=== PATIENT | male | born 1950 | race Caucasian/White ===

== ENCOUNTER → 2017-07-14 | Day surgery (SDC) | payer OTHER ==
[~2017-07-14] VITALS: Ht 177.8 cm; Wt 96.0 kg
[~2017-07-14] MED LIST: ASPEC81 PO; ESCI10TA17 PO; FENTANYL CITRATE INJ 50 MCG/1 ML 2 ML VIAL ONE; HEPARIN SOD (PORCINE) 1000 UNIT/ML 10 ML VIAL ONE; LISI-729 PO; LPT40 PO; LSN5 PO; METO25TA56 PO; METO50TA16 PO; MIDAZOLAM HCL 1 MG/ML 2ML VIAL ONE; NITROGLYCERIN/D5W 100MCG/ML 20ML SYR ONE; NTRSLP4 SL; NiCARDipine HCL INJ 2.5 MG/ML 10 ML AMP ONE; PLV75 PO; ROSU5TAB PO; SILD1TAB11 PO
[2017-07-14 07:10] VITALS: BP 129/64; PULSE 60; TEMP 36.7; O2SAT 97; Ht 177.8 cm; Wt 96.0 kg
--- NOTE | 2017-07-14 08:06 | Procedure Note ---
Pre-Mod Sedation Assessment General Date of Moderate Sedation: Jul 14, 2017. Vital Signs: Vital Signs Past 12 Hours Date Time Temp Pulse Resp B/P (MAP) Pulse Ox O2 Delivery O2 Flow Rate FiO2 07/14/17 07:10 36.7 60 18 129/64 97 Room Air Review Cardiovascular: regular rate, rhythm, no edema Abdomen: normal bowel sounds, non tender Lungs: chest non-tender, lungs clear Airway Class: III Pre-Sedation Airway Assessment Oral Cavity: Dentures, WNL Short Thick Neck: No Hx of Sleep Apnea: No Smoking Status: Former Smoker Mallampati Classification: Class III ASA Classification: Class III Procedure Planning Contraindications-for Mod Sed: None Yes Notes The planned sedation has been discussed with the patient and consent obtained. I have identified the patient, determined the appropriateness of sedation and have assessed the patient immediately prior to the procedure. All medicine(s) and interventions are by my order.
--- NOTE | 2017-07-14 08:06 | History & Physical Bridge Note ---
H&P Re-Evaluation Bridge Note: I have examined the patient, reviewed the History & Physical and in the interval since the performance of the History & Physical I have noted the following changes of clinical significance: No changes noted
--- NOTE | 2017-07-14 08:48 | Procedure Note ---
Post-Mod Sedation Assessment General Date of Moderate Sedation Jul 14, 2017. Vital Signs: Vital Signs Past 12 Hours Date Time Temp Pulse Resp B/P (MAP) Pulse Ox O2 Delivery O2 Flow Rate FiO2 07/14/17 07:10 36.7 60 18 129/64 97 Room Air Review - Discharge Criteria Vital Signs Stable: Yes Alert/Oriented/Conversant: Yes Returned to Baseline Mental St: Yes Nausea Absent/Minimal: Yes Pain/Discomfort/Absent/Minimal: Yes Active Bleeding?: No Pt Received D/C Instructions: N/A Prescriptions Given: None Specific Proced. D/C Criteria Distal Pulses Present (Cardiac: Yes Groin site assessed-Card Cath: N/A Voided Prior To Discharge: N/A Discharged Patients Adult Escort/Transportation: Yes
--- NOTE | 2017-07-14 08:58 | Cardiac Catheterization ---
Procedure Note Procedure Date Jul 14, 2017. Pre-Procedure Diagnosis Angina AUC Score 7 Post-Procedure Diagnosis Mild CAD, Normal LV Systolic Function, Normal Intracardiac Pressures Procedure(s) Performed Coronary Angiography, Left Heart Cath Ob/Gyn Doctor Anuel Nutrition Representative(s) Joan Estimated Blood Loss 10 Medication(s) Fentanyl, Heparin, Nitroglycerin, Versed, Lidocaine 1% Summary of Findings Indication: Accelerating angina/History of CAD post prior Inferior STEMI with proximal RCA stent Access: 6Fr slender Right Radial Artery Catheters: [place], pigtail Findings: LM - Luminal irregularities LAD - Mild disease, 20% mid segment, moderate sized vessel wraps around apex. LAD gives off 2 small diagonal with mild disease. Circumflex - Mild disease, 20% mid segment, moderate sized OM2 with luminal irregularities RCA - Dominant, minimal in-stent restenosis in proximal stent, distal luminal irregularities. LVEDP - 16 Arterial Closure: TR Band Summary: 1. Mild non-obstructive coronary artery disease - Patent proximal RCA stent with minimal instent restenosis. 2. Normal intracardiac filling pressure. Preserved LV function. Recommendations: Will discontinue plavix as now more than 1 year out from stent Reduce metoprolol from 50 mg to 25 mg bid Evaluate for non-cardiac causes of shortness of breath Follow-up with Dr. Agee in 1 month. Hemodynamics Rest Ao: 102/52/73 Final Ao: 96/50/69 LV: 95/16 Recommendations Medical therapy and/or Counseling Specimens None Radiation Exposure (mGy) 1072 Contrast (mls) 80 Fluids (cc crystalloids) 70 Drains None Anesthesia Moderate Procedural Complication(s) None Disposition Consultant Intern Holding/Recovery ACC Data Cardiac Status Clinical evaluation leading to the procedure CAD Presntation: Unstable angina Anginal Classification: CCS III Heart Failure: No, NYHA Class: CCS I Cardiogenic Shock w/in 24Hrs: No Cardiac Arrest w/in 24Hrs: No Imaging studies past 6 months: No Stress studies past 6 months: No Coronary Anatomy Dominant: Right Closure Device Percutaneous Entry Location: Radial Closure Device: Radial Band Recommendations: Medical therapy and/or Counseling Intraprocedure Events Significant Dissection: No Perforation: No
--- NOTE | 2017-07-14 09:02 | Discharge Instructions ---
Discharge Instructions Procedure Procedure Date: Jul 14, 2017. Reason for Visit: CadDr Agee To Do Cath. Discharge Discharge Date: Jul 14, 2017. Discharge Diagnosis: Non-obstructive coronary artery disease Last Recorded Wt (Kilograms): 96 Anesthesia Post Anesthesia Instructions: If you have had General Anesthesia or IV Sedation: * Do not drive today. * Resume driving when surgeon permits. * Do not make important decisions or sign legal documents today. * Call surgeon for: 1. Temperature elevations greater than 101 degrees F. 2. Uncontrollable pain. 3. Excessive bleeding. 4. Persistent nausea and vomiting. 5. Medication intolerance (nausea, vomiting or rash). * For nausea and vomiting use only clear liquids such as: tea, soda, bouillon until nausea subsides, then gradually increase diet as tolerated. * If you have any concerns or questions, call your surgeon's office. If physician is unavailable and it is an emergency, call 911 or go to the nearest emergency room. Instructions Activity Recommendations: limitations as noted below Recommended Home Diet: resume previous diet Allergies: Coded Allergies: No Known Allergies (Unverified , 07/09/16) Follow Up Additional Instructions: ACTIVITY RECOMMENDATIONS: It is common to feel weak and fatigue for a few days. * Do not drive or operate any motorized equipment for the next 2 days. * Limit stair usage (2 or 3 trips a day only) for the next 2 days. * Do not lift anything heavier than 10 pounds for the next three days. * Do not engage in vigorous exercise or any sports for the next five days. * You may shower the day after your procedure, but do not immerse the area for three days. Cleanse the site gently with soap and water. SPECIAL CARE INSTRUCTIONS: * You may replace the pressure dressing or band-aid the morning after the procedure. * After your procedure, it is normal to have a small bruise or small lump at the site. Examine your site daily for any change in the bruise or lump, redness, swelling, drainage or numbness. Notify your doctor if any change. BLEEDING: * If there is a small amount of bleeding at the site, lie down and apply firm pressure with a clean cloth for ten minutes. When the bleeding stops, lie quietly keeping the procedure limb straight for six hours. Notify your doctor as soon as possible. * If the bleeding does not stop after ten minutes or if there is a large amount of bleeding or spurting, call 911 immediately. Continue to lie down and hold firm pressure until help arrives. SKIN IRRITATION: * You may experience some redness and/or swelling in the area where radiation was administered. If any skin irritation occurs, please contact your family physician. FOLLOW UP VISIT: Keep any scheduled doctor appointments. Follow-up with: [address] Anuel Hinojosa Recommendations: Call your doctor if: * Temperature above 101 degrees * Pain not relieved by pain medicine ordered * There is increased drainage or redness from any incision * You have any unanswered questions or concerns. Your Doctors Instructions noted above were prepared by provider Lang Agee. Patient Signature Section: Patient Instructions Signature Page Rom Robertson Patient (or Guardian) Signature/Date: I have read and understand the instructions given to me by my caregivers. Caregiver/RN/Doctor Signature/Date: The above-named patient and/or guardian has received patient instructions on this date. + Original Patient Signature Page (only) stays with chart. Please make copy for patient.
[2017-07-14 11:00] VITALS: BP 98/52; PULSE 48; O2SAT 96
== END | disposition home or self-care (01) ==
LOC: C.CATH 06:56
PROVIDERS: ATTEND Internal Medicine Interventional Cardiology
DX: I25.10 Atherosclerotic heart disease of native coronary artery without angina pectoris (principal); Z95.9 Presence of cardiac and vascular implant and graft, unspecified; I25.2 Old myocardial infarction; I49.3 Ventricular premature depolarization; I44.2 Atrioventricular block, complete; F17.200 Nicotine dependence, unspecified, uncomplicated; Z90.89 Acquired absence of other organs; Z79.82 Long term (current) use of aspirin; Z79.899 Other long term (current) drug therapy

== ENCOUNTER 2024-09-19 20:54 | Inpatient (IN) ==
[2024-09-19 21:36] LABS: Basophils # (auto) 0.04 K/uL (0.00-0.20); Basophils % (auto) 0.4 %; Eosinophils # (auto) 0.23 K/uL (0.00-0.50); Hematocrit (blood only) 41.2 % (42.0-52.0); Hemoglobin 13.9 g/dl (14.0-18.0); Immature Granulocytes # (auto) 0.09 K/uL (0.01-0.20); Immature Granulocytes % (auto) 0.8 %; Lymphocytes # (auto) 2.53 K/uL (1.20-3.40); Lymphocytes % (auto) 22.4 %; Mean Corpuscular Hemoglobin 31.5 pg (25.0-34.0); Mean Corpuscular Hgb Conc 33.7 g/dL (32.0-36.0); Mean Corpuscular Volume 93.4 fL (80.0-100.0); Monocytes # (auto) 0.91 K/uL (0.11-0.59); Neutrophils # (auto) 7.51 K/uL (1.40-6.50); Neutrophils % (auto) 66.4 %; Platelet Count 252 K/uL (130-400); RDW Coefficient of Variation 13.4 % (11.5-14.5); RDW Standard Deviation 46.1 fL (36.4-46.3); Red Blood Count 4.41 M/uL (4.70-6.10); White Blood Count 11.31 K/ul (4.8-10.8)
[2024-09-19 21:54] LABS: Albumin Globulin Ratio 1.4 (0.9-2); Albumin Level 4.1 gm/dl (3.4-5.0); BUN Creatinine Ratio 21.5 (10-20); Bilirubin,Total 0.3 mg/dl (0.2-1.0); Calcium 9.5 mg/dl (8.6-10.3); Creatinine Clr Calc Pharmacy 84.8 ml/min; Potassium 3.8 mmol/L (3.5-5.1); Total Protein 7.1 gm/dl (6.0-8.3)
[2024-09-19 21:56] LABS: Partial Thromboplastin Time 27 Seconds (21-31); Prothrombin Time 10.6 Seconds (9.0-12.0)
[2024-09-19 22:01] LABS: Troponin I High Sensitivity 8.6 pg/ml (0-20)
[2024-09-19] MEDS: OPTIRAY 320 125ml IV ONE (22:09)
[2024-09-19] MEDS: SODIUM CHLORIDE 0.9% 500 ML IV ONE (22:15)
--- NOTE | 2024-09-19 22:55 | Emergency Department Note ---
Impression & Plan Numbness and tingling of right face ED Provider Note NAME: NEGAR BUSH AGE: 74 SEX: Male INFORMANT: Patient and family ED PROVIDER(S): Negar Bragg MD CHIEF COMPLAINT: TIA symptoms PLAN: Disposition: Admitted Outpatient prescription management: none Referral: None MEDICAL DECISION MAKING: Patient presented because of complaints of right facial numbness and weakness. Historically also noted abnormalities with taste and smell. On examination he had sparing of his forehead although with some complaints of difficulty closing his eye. He did clear have weakness as well as numbness of the right lower face as well as the right side of his tongue. Clinically this could be a developing Peng's palsy but with the forehead sparing at this time a stroke workup was pursued. Patient does have a significant family history of stroke. No significant findings were noted on CT or CT angiography. Patient did have some canal stenosis at C3-C4 but has no neck pain. Patient was treated with aspirin. This may take more time to delineate between a supranuclear event/lesion versus a slowly developing Peng's. A Lyme test was done and negative. Chemistry panel was unremarkable. CBC had a borderline leukocytosis. Patient had a normal ECG. Cardiac monitoring revealed no evidence of dysrhythmia. [facility] Patient was evaluated in the ER and admitted for further management Care/management discussed with: Case management Level of care consideration(s): After review of the information above and other included data, I feel the patient requires escalation of care to admission and further neurologic evaluation. Triage Nursing notes: reviewed and agree them. Vital Signs: reviewed and remarkable for no significant abnormalities Additional History obtained from: Family. notes no confusion. Helped with time of onset of symptoms Chronic Medical/Social Conditions affecting care: CAD Prior/ Outside/ External records reviewed: none Differential Diagnosis: CVA, TIA, Peng's palsy,Infection, dehydration, metabolic abnormality, hypo/hyperglycemia, electrolyte disturbance, anemia, hypoxia, cardiac sources, intracerebral event, toxicologic, neurologic, as well as other pathologies. Diagnostics, independently interpreted by me: ECG: [none] Cardiac Monitoring: [none] Medical decision rules: [none] Imaging studies: [] HPI: 74 year old Male arrives for evaluation of TIA symptoms right facial numbness. This started yesterday and is progressing. The patient also notes the following associated symptoms, lack of taste for a month, sensitivity to smells, difficulty closing his right eye today. The patient has taken no medication relieving factors. Current pain is rated as 0/10. Pt denies LOC, headache, fevers, chills, diaphoresis, visual changes, neck pain, chest pain, breathing difficulties, nausea, vomiting, abdominal pain, back pain, melena, hematochezia, urinary symptoms, extremity numbness,other weakness, lymphadenopathy, rash, or other complaints. PAST MEDICAL HISTORY: See Below, high cholesterol, hypertension, CAD PAST SURGICAL HISTORY: See Below, SOCIAL HISTORY: See Below, quit smoking HOME MEDICATIONS: See Below ALLERGIES: See Below VITALS: See Below PHYSICAL EXAMINATION: GENERAL: Awake, alert, well-appearing, in no distress HENT: Normocephalic, atraumatic. Oropharynx unremarkable. EYES: Normal conjunctiva. Sclera non-icteric. PERRL, EOMI. NECK: Inspection normal. Non-tender. Supple. No nuchal rigidity. FROM. No masses. RESPIRATORY: Clear to auscultation. No wheezes. No rales. Normal respiratory effort. CARDIAC: Normal rate. Normal rhythm. No murmurs. No rubs. Extremities warm and well perfused. Pulses equal. No JVD. GI: Soft, non-distended. No tenderness to palpation. No rebound or guarding. No masses. RECTAL: Deferred. MUSCULOSKELETAL: Atraumatic. Chest examination reveals no tenderness. The back is symmetrical on inspection without obvious abnormality. There is no CVA tenderness to palpation. No joint edema. LOWER EXTREMITIES: Calves are equal size bilaterally and non-tender. No edema. No discoloration. NEURO: Normal sensorium. No sensory or motor deficits noted in the extremities. No drift. Normal rapid altering movements. Normal [id number]. There is right lower facial weakness noted. Patient notes decreased sensation of the right lower face. Subjectively there is some weakness of closing the right eye however there is forehead sparing on the right side. Patient notes decrease sensation to the right inner cheek as well as the right side of his tongue. SKIN: No rash or jaundice noted. PROCEDURES: none CRITICAL CARE: none OBSERVATION NOTE: none Past Med/Surg History Problem List (Updated 09/19/24 @ 22:55 by Negar Bragg MD) Numbness and tingling of right face (Acute) Coronary artery disease Tobacco abuse (Chronic) Surgical History (Updated 05/08/20 @ 11:11 by ROSAURA Berger) History of tonsillectomy Status post coronary angiogram Social History (Updated 05/08/20 @ 11:12 by ROSAURA Berger) Smoking Status: Never smoker Preferred Language: Monegasque marital status: current occupational status: unemployed Feels Safe at Home: Yes Allergies Allergies Allergy/AdvReac Type Severity Reaction Status Date / Time No Known Allergies Allergy Unverified 12/31/23 13:19 Home Meds Previous Rx's Medication Instructions Recorded aspirin 81 mg tablet,delayed 81 mg PO DAILY #90 tabs 05/23/19 release (Adult Low Dose Aspirin) nitroglycerin 0.4 mg sublingual 0.4 mg sublingual Q5M PRN chest 01/20/22 tablet pain #25 tabs rosuvastatin 40 mg tablet 40 mg PO DAILY #90 tabs 11/10/23 lisinopril 10 mg tablet 10 mg PO DAILY #90 tabs 12/31/23 lisinopril 5 mg tablet 5 mg PO DAILY #90 tabs 06/29/24 Results & Data (ED) Vital Signs Vital Signs - 24 hr 09/19/24 20:57 09/19/24 21:20 09/19/24 21:21 Temperature 36.8 C Temperature Source Temporal Artery Scan Pulse Rate 67 64 Pulse Rate [Apical] 64 Pulse Rate from SpO2 Sensor Pulse Rhythm [Apical] Regular Pulse Strength [Apical] Normal Respiratory Rate 20 16 Respiratory Effort / Characteristics Non-Labored Spontaneous Non-Labored Respiratory Depth Normal Normal Blood Pressure 148/70 H Blood Pressure [Right Arm] 128/63 Blood Pressure Mean 96 Blood Pressure Mean [Right Arm] 84 Pulse Oximetry 95 96 Oxygen Delivery Method Room Air Room Air Sepsis Recent Fever Within 48 Hours No Sepsis New/Unexplained Change in Mental Status No Sepsis Action Taken by Nursing No Action Required 09/19/24 21:30 09/19/24 22:30 09/19/24 23:00 Temperature Temperature Source Pulse Rate 61 62 Pulse Rate [Apical] Pulse Rate from SpO2 Sensor 63 Pulse Rhythm [Apical] Pulse Strength [Apical] Respiratory Rate 19 16 Respiratory Effort / Characteristics Non-Labored Respiratory Depth Normal Blood Pressure 123/67 128/82 Blood Pressure [Right Arm] Blood Pressure Mean 85 96 Blood Pressure Mean [Right Arm] Pulse Oximetry 96 96 Oxygen Delivery Method Sepsis Recent Fever Within 48 Hours Sepsis New/Unexplained Change in Mental Status Sepsis Action Taken by Nursing 09/19/24 23:00 09/19/24 23:00 09/19/24 23:00 Temperature Temperature Source Pulse Rate Pulse Rate [Apical] Pulse Rate from SpO2 Sensor Pulse Rhythm [Apical] Pulse Strength [Apical] Respiratory Rate Respiratory Effort / Characteristics Respiratory Depth Blood Pressure 146/88 H 146/88 H 146/88 H Blood Pressure [Right Arm] Blood Pressure Mean 106 106 106 Blood Pressure Mean [Right Arm] Pulse Oximetry Oxygen Delivery Method Sepsis Recent Fever Within 48 Hours Sepsis New/Unexplained Change in Mental Status Sepsis Action Taken by Nursing 09/19/24 23:00 09/19/24 23:42 09/19/24 23:51 Temperature Temperature Source Pulse Rate 68 61 60 Pulse Rate [Apical] Pulse Rate from SpO2 Sensor 68 Pulse Rhythm [Apical] Pulse Strength [Apical] Respiratory Rate 16 19 21 Respiratory Effort / Characteristics Respiratory Depth Blood Pressure Blood Pressure [Right Arm] Blood Pressure Mean Blood Pressure Mean [Right Arm] Pulse Oximetry 96 Oxygen Delivery Method Sepsis Recent Fever Within 48 Hours Sepsis New/Unexplained Change in Mental Status Sepsis Action Taken by Nursing 09/20/24 00:00 09/20/24 00:06 09/20/24 00:18 Temperature Temperature Source Pulse Rate 67 58 L Pulse Rate [Apical] Pulse Rate from SpO2 Sensor 67 59 L Pulse Rhythm [Apical] Pulse Strength [Apical] Respiratory Rate 18 19 Respiratory Effort / Characteristics Respiratory Depth Blood Pressure 131/71 Blood Pressure [Right Arm] Blood Pressure Mean 100 Blood Pressure Mean [Right Arm] Pulse Oximetry 95 95 Oxygen Delivery Method Sepsis Recent Fever Within 48 Hours Sepsis New/Unexplained Change in Mental Status Sepsis Action Taken by Nursing 09/20/24 00:32 09/20/24 00:32 09/20/24 00:32 Temperature Temperature Source Pulse Rate 58 L Pulse Rate [Apical] Pulse Rate from SpO2 Sensor Pulse Rhythm [Apical] Pulse Strength [Apical] Respiratory Rate 16 Respiratory Effort / Characteristics Respiratory Depth Blood Pressure 144/70 H 144/70 H 144/70 H Blood Pressure [Right Arm] Blood Pressure Mean 94 87 87 Blood Pressure Mean [Right Arm] Pulse Oximetry 96 Oxygen Delivery Method Room Air Sepsis Recent Fever Within 48 Hours Sepsis New/Unexplained Change in Mental Status Sepsis Action Taken by Nursing 09/20/24 00:33 09/20/24 00:48 09/20/24 01:00 Temperature Temperature Source Pulse Rate 59 L 58 L Pulse Rate [Apical] Pulse Rate from SpO2 Sensor 59 L 55 L Pulse Rhythm [Apical] Pulse Strength [Apical] Respiratory Rate 20 15 Respiratory Effort / Characteristics Non-Labored Respiratory Depth Normal Blood Pressure Blood Pressure [Right Arm] Blood Pressure Mean Blood Pressure Mean [Right Arm] Pulse Oximetry 97 95 Oxygen Delivery Method Sepsis Recent Fever Within 48 Hours Sepsis New/Unexplained Change in Mental Status Sepsis Action Taken by Nursing 09/20/24 01:04 09/20/24 01:12 09/20/24 01:19 Temperature Temperature Source Pulse Rate 69 57 L Pulse Rate [Apical] Pulse Rate from SpO2 Sensor 63 Pulse Rhythm [Apical] Pulse Strength [Apical] Respiratory Rate 20 Respiratory Effort / Characteristics Respiratory Depth Blood Pressure 152/77 H Blood Pressure [Right Arm] Blood Pressure Mean 99 Blood Pressure Mean [Right Arm] Pulse Oximetry 94 Oxygen Delivery Method Sepsis Recent Fever Within 48 Hours Sepsis New/Unexplained Change in Mental Status Sepsis Action Taken by Nursing 09/20/24 01:31 09/20/24 01:31 09/20/24 01:36 Temperature Temperature Source Pulse Rate 63 Pulse Rate [Apical] Pulse Rate from SpO2 Sensor 59 L Pulse Rhythm [Apical] Pulse Strength [Apical] Respiratory Rate 18 Respiratory Effort / Characteristics Respiratory Depth Blood Pressure 135/63 135/63 Blood Pressure [Right Arm] Blood Pressure Mean 87 87 Blood Pressure Mean [Right Arm] Pulse Oximetry 97 Oxygen Delivery Method Sepsis Recent Fever Within 48 Hours Sepsis New/Unexplained Change in Mental Status Sepsis Action Taken by Nursing Laboratory Data 09/19/24 21:10 09/19/24 21:10 Lab Results 09/19/24 Range/Units 21:10 WBC 11.31 H (4.8-10.8) K/ul RBC 4.41 L (4.70-6.10) M/uL Hgb 13.9 L (14.0-18.0) g/dl Hct 41.2 L (42.0-52.0) % MCV 93.4 (80.0-100.0) fL MCH 31.5 (25.0-34.0) pg MCHC 33.7 (32.0-36.0) g/dL RDW Std Deviation 46.1 (36.4-46.3) fL RDW Coeff of Shira 13.4 (11.5-14.5) % Plt Count 252 (130-400) K/uL MPV 11.0 (9.4-12.4) fL Immature Gran % (Auto) 0.8 % Neut % (Auto) 66.4 % Lymph % (Auto) 22.4 % [place] % (Auto) 8.0 % Eos % (Auto) 2.0 % Baso % (Auto) 0.4 % Neut # (Auto) 7.51 H (1.40-6.50) K/uL Lymph # (Auto) 2.53 (1.20-3.40) K/uL [place] # (Auto) 0.91 H (0.11-0.59) K/uL Eos # (Auto) 0.23 (0.00-0.50) K/uL Baso # (Auto) 0.04 (0.00-0.20) K/uL Immature Gran # (Auto) 0.09 (0.01-0.20) K/uL PT 10.6 (9.0-12.0) Seconds INR 1.0 (0.9-1.1) APTT 27 (21-31) Seconds PTT Ratio 1.0 Sodium 139 (136-145) mmol/L Potassium 3.8 (3.5-5.1) mmol/L Chloride 105 (98-107) mmol/L Carbon Dioxide 27 (21-32) mmol/L Anion Gap 7 (3-11) BUN 20 (6-23) mg/dl Creatinine 0.93 (0.6-1.4) mg/dl Est Cr Clr Drug Dosing 84.8 ml/min eGFR 86.16 BUN/Creatinine Ratio 21.5 H (10-20) Glucose 115 H (70-99(Fasting)) mg/dl Calcium 9.5 (8.6-10.3) mg/dl Magnesium 2.0 (1.7-2.4) mg/dl Total Bilirubin 0.3 (0.2-1.0) mg/dl AST 19 (13-39) U/L ALT 14 (7-52) U/L Alkaline Phosphatase 89 (34-104) U/L Troponin I High Sens 8.6 (0-20) pg/ml Total Protein 7.1 (6.0-8.3) gm/dl Albumin 4.1 (3.4-5.0) gm/dl Globulin 3.0 (2.5-4.0) gm/dl Albumin/Globulin Ratio 1.4 (0.9-2) Lyme Disease Screen Negative (Negative) Administered Medications Discontinued Medications Aspirin (Aspirin Chew 324 Mg) 324 mg PO NOW STA Stop: 09/20/24 00:24 Last Admin: 09/20/24 00:30 Dose: 324 mg Documented By: GLENN Sodium Chloride (Nss) 500 mls @ 999 mls/hr IV .Q31M ONE Stop: 09/19/24 22:18 Last Infusion: 09/19/24 22:50 Dose: Infused Documented By: Admin: 09/19/24 22:15 Dose: 999 mls/hr Documented By: ELIESER Ioversol (Optiray 320 125ml) 117 ml IV ONCE ONE Stop: 09/19/24 22:09 Last Admin: 09/19/24 22:09 Dose: 117 ml Documented By: ASHWIN Imaging Data Radiologist's Impression: Head CT 09/19/24 21:47 Exam(s): CT HEAD Without Contrast EXAM: CT Head Without Intravenous Contrast CLINICAL HISTORY: Reason for exam: Right facial numbness. TECHNIQUE: Axial computed tomography images of the head/brain without intravenous contrast. CTDI is 64 mGy and DLP is 1098 mGy-cm. Automated exposure control was utilized for the study. A dose lowering technique was utilized adhering to the principles of ALARA. COMPARISON: No relevant prior studies available. FINDINGS: Brain: No intracranial hemorrhage, mass-effect, or cerebral edema. Atrophy and chronic microvascular ischemic changes. Ventricles: Unremarkable. Bones/joints: Unremarkable. No fracture. Soft tissues: Unremarkable. Sinuses: No acute sinusitis. Mastoid air cells: Unremarkable as visualized. IMPRESSION: 1. No acute intracranial abnormality. 2. Atrophy and chronic microvascular ischemic changes. Electronically signed by: Harshil Laws MD 09/19/24 23:53 PM Head CTA 09/19/24 21:47 Exam(s): CTA HEAD With Contrast IV Amt: 117 ml optiray 320 EXAM: CT Angiography Head With Intravenous Contrast CLINICAL HISTORY: Reason for exam: Right facial numbness. TECHNIQUE: Axial computed tomographic angiography images of the head with intravenous contrast. CTDI is 64 mGy and DLP is 1098 mGy-cm. Automated exposure control was utilized for the study. A dose lowering technique was utilized adhering to the principles of ALARA. MIP reconstructed images were created and reviewed. CONTRAST: Patient received 117 ml optiray 320 of IV contrast COMPARISON: No relevant prior studies available. FINDINGS: Right internal carotid artery: Intracranial segment is patent with no significant stenosis. No aneurysm. Right anterior cerebral artery: No occlusion or significant stenosis. No aneurysm. Right middle cerebral artery: No occlusion or significant stenosis. No aneurysm. Right posterior cerebral artery: No occlusion or significant stenosis. No aneurysm. Right vertebral artery: Unremarkable as visualized. Left internal carotid artery: Intracranial segment is patent with no significant stenosis. No aneurysm. Left anterior cerebral artery: No occlusion or significant stenosis. No aneurysm. Left middle cerebral artery: No occlusion or significant stenosis. No aneurysm. Left posterior cerebral artery: No occlusion or significant stenosis. No aneurysm. Left vertebral artery: Unremarkable as visualized. Basilar artery: No occlusion or significant stenosis. No aneurysm. IMPRESSION: Normal head CTA. Electronically signed by: Harshil Laws MD 09/19/24 23:46 PM Neck CTA 09/19/24 21:47 Exam(s): CTA NECK With Contrast IV Amt: 117 ml optiray 320 EXAM: CT Angiography Neck With Intravenous Contrast CLINICAL HISTORY: Reason for exam: Right facial numbness. TECHNIQUE: Routine carotid CT angiography protocol was performed with intravenous contrast. NASCET criteria using the distal ICAs for comparison were used for evaluation of stenoses. CTDI is 64 mGy and DLP is 1098 mGy-cm. Automated exposure control was utilized for the study. A dose lowering technique was utilized adhering to the principles of ALARA. MIP reconstructed images were created and reviewed. CONTRAST: Patient received 117 ml optiray 320 of IV contrast COMPARISON: None. FINDINGS: VASCULATURE: Right common carotid artery: No occlusion or significant stenosis. No dissection. Right internal carotid artery: Extracranial segment is patent with no occlusion or significant stenosis. No dissection. Right vertebral artery: No occlusion or significant stenosis. No dissection. Left common carotid artery: No occlusion or significant stenosis. No dissection. Left internal carotid artery: Extracranial segment is patent with no occlusion or significant stenosis. No dissection. Left vertebral artery: No occlusion or significant stenosis. No dissection. NECK: Bones/joints: No acute fracture. Moderate to severe canal stenosis at C3-C4. Multilevel high-grade foraminal stenosis. Soft tissues: Unremarkable. Lung apices: Clear. CAROTID STENOSIS REFERENCE USING NASCET CRITERIA: % ICA stenosis = (1 - narrowest ICA diameter/diameter of distal cervical ICA) x 100. Mild - <50% stenosis. Moderate - 50-69% stenosis. Severe - 70-94% stenosis. Near occlusion - 95-99% stenosis. Occluded - 100% stenosis. IMPRESSION: 1. No flow-limiting stenosis. 2. Moderate to severe canal stenosis at C3-4. Electronically signed by: Harshil Laws MD 09/19/24 23:56 PM Chest X-Ray 09/19/24 22:58 Exam(s): XR CXR 1 VIEW EXAM: XR Chest, 1 View CLINICAL HISTORY: Reason for exam: stroke like symptoms. TECHNIQUE: Frontal view of the chest. COMPARISON: Chest radiograph on 07/09/2016 FINDINGS: Hardware: None. Lungs/pleura: Normal. No focal consolidation. No pleural effusion or pneumothorax. Heart/mediastinum: Normal. No cardiomegaly. Soft tissues: Unremarkable. Bones: No acute fracture. Upper abdomen: Normal. IMPRESSION: No acute disease identified. Electronically signed by: Paulie Mejia M.D. 09/20/24 01:31 AM Discharge Plan Visit Data Chief Complaint: TIA Symptoms Stated Complaint: NUMB RT FACE, VISION ED Provider: Negar Bragg Discharge Problem: Numbness and tingling of right face Forms Stand Alone Forms: [facility] [employer] Prescriptions Prescriptions: No Action aspirin [Adult Low Dose Aspirin] 81 mg tablet,delayed release (DR/EC) 81 mg PO DAILY Qty: 90 3RF nitroglycerin 0.4 mg tablet, sublingual 0.4 mg SL Q5M PRN (Reason: chest pain) Qty: 25 3RF Rx Instructions: until response; do not exceed 3 doses per episode rosuvastatin 40 mg tablet 40 mg PO DAILY Qty: 90 3RF lisinopril 5 mg tablet 5 mg PO DAILY Qty: 90 3RF lisinopril 10 mg tablet 10 mg PO DAILY Qty: 90 3RF Referrals Referrals: PCP,NO [Physician] -
--- NOTE | 2024-09-19 23:48 | CT Scan Report ---
Exam(s): CTA HEAD With Contrast IV Amt: 117 ml optiray 320 EXAM: CT Angiography Head With Intravenous Contrast CLINICAL HISTORY: Reason for exam: Right facial numbness. TECHNIQUE: Axial computed tomographic angiography images of the head with intravenous contrast. CTDI is 64 mGy and DLP is 1098 mGy-cm. Automated exposure control was utilized for the study. A dose lowering technique was utilized adhering to the principles of ALARA. MIP reconstructed images were created and reviewed. CONTRAST: Patient received 117 ml optiray 320 of IV contrast COMPARISON: No relevant prior studies available. FINDINGS: Right internal carotid artery: Intracranial segment is patent with no significant stenosis. No aneurysm. Right anterior cerebral artery: No occlusion or significant stenosis. No aneurysm. Right middle cerebral artery: No occlusion or significant stenosis. No aneurysm. Right posterior cerebral artery: No occlusion or significant stenosis. No aneurysm. Right vertebral artery: Unremarkable as visualized. Left internal carotid artery: Intracranial segment is patent with no significant stenosis. No aneurysm. Left anterior cerebral artery: No occlusion or significant stenosis. No aneurysm. Left middle cerebral artery: No occlusion or significant stenosis. No aneurysm. Left posterior cerebral artery: No occlusion or significant stenosis. No aneurysm. Left vertebral artery: Unremarkable as visualized. Basilar artery: No occlusion or significant stenosis. No aneurysm. IMPRESSION: Normal head CTA. Electronically signed by: Harshil Laws MD 09/19/24 23:46 PM
--- NOTE | 2024-09-19 23:54 | CT Scan Report ---
Exam(s): CT HEAD Without Contrast EXAM: CT Head Without Intravenous Contrast CLINICAL HISTORY: Reason for exam: Right facial numbness. TECHNIQUE: Axial computed tomography images of the head/brain without intravenous contrast. CTDI is 64 mGy and DLP is 1098 mGy-cm. Automated exposure control was utilized for the study. A dose lowering technique was utilized adhering to the principles of ALARA. COMPARISON: No relevant prior studies available. FINDINGS: Brain: No intracranial hemorrhage, mass-effect, or cerebral edema. Atrophy and chronic microvascular ischemic changes. Ventricles: Unremarkable. Bones/joints: Unremarkable. No fracture. Soft tissues: Unremarkable. Sinuses: No acute sinusitis. Mastoid air cells: Unremarkable as visualized. IMPRESSION: 1. No acute intracranial abnormality. 2. Atrophy and chronic microvascular ischemic changes. Electronically signed by: Harshil Laws MD 09/19/24 23:53 PM
--- NOTE | 2024-09-19 23:57 | CT Scan Report ---
Exam(s): CTA NECK With Contrast IV Amt: 117 ml optiray 320 EXAM: CT Angiography Neck With Intravenous Contrast CLINICAL HISTORY: Reason for exam: Right facial numbness. TECHNIQUE: Routine carotid CT angiography protocol was performed with intravenous contrast. NASCET criteria using the distal ICAs for comparison were used for evaluation of stenoses. CTDI is 64 mGy and DLP is 1098 mGy-cm. Automated exposure control was utilized for the study. A dose lowering technique was utilized adhering to the principles of ALARA. MIP reconstructed images were created and reviewed. CONTRAST: Patient received 117 ml optiray 320 of IV contrast COMPARISON: None. FINDINGS: VASCULATURE: Right common carotid artery: No occlusion or significant stenosis. No dissection. Right internal carotid artery: Extracranial segment is patent with no occlusion or significant stenosis. No dissection. Right vertebral artery: No occlusion or significant stenosis. No dissection. Left common carotid artery: No occlusion or significant stenosis. No dissection. Left internal carotid artery: Extracranial segment is patent with no occlusion or significant stenosis. No dissection. Left vertebral artery: No occlusion or significant stenosis. No dissection. NECK: Bones/joints: No acute fracture. Moderate to severe canal stenosis at C3-C4. Multilevel high-grade foraminal stenosis. Soft tissues: Unremarkable. Lung apices: Clear. CAROTID STENOSIS REFERENCE USING NASCET CRITERIA: % ICA stenosis = (1 - narrowest ICA diameter/diameter of distal cervical ICA) x 100. Mild - <50% stenosis. Moderate - 50-69% stenosis. Severe - 70-94% stenosis. Near occlusion - 95-99% stenosis. Occluded - 100% stenosis. IMPRESSION: 1. No flow-limiting stenosis. 2. Moderate to severe canal stenosis at C3-4. Electronically signed by: Harshil Laws MD 09/19/24 23:56 PM
--- OUTSIDE RECORDS SUMMARY | 2024-09-20 00:10 | External Medical Summary | Summary of Care ---
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 Name Role Phone Irineo Davila MD Primary Care Provider [phone] Reason for Visit * Reason Onset Date Comments Health Maintenance 08/30/2024 Encounter Details Date Type Department Care Team (Late st Contact Info) Description 08/30/2024 Telephone [facility] [place] [address] [place] [phone] Irineo Davila MD [address] [facility] [place] [address] Health Maintenance Allergies Active Allergy Reactions Criticality Noted Date Comments Atorvastatin 06/08/2017 Saccharin Nausea/vomiting 07/15/2016 documented as of this encounter (statuses as of 08/30/2024) Medications ASPIRIN TABS 81 MG ORIndications:Fa m hx-cardiovas dis NEC 34 5 0 Active Diclofenac Sodium 1 % gelIndications:O steoarthritis of thumb, right Place 2 g topically on the skin 4 times a day as needed for Pain. 3 Tube 3 7 Active Loperamide HCl (IMODIUM A-D) 2 MG TabletIndication s:Diarrhea, unspecified type Take 1 Tab by mouth daily as needed for Diarrhea. Then one tablet after each loose BM, no more than 4 tablets per day for up to two days 18 Tab 7 Active nitroglycerin (NITROSTAT) 0.[address] 1 Tab under the tongue as needed for Pain, Chest. May repeat 3 times. If chest pain continues, call 911. 25 Tab 11 8 Active Fluticasone Propionate 50 MCG/ACT Nasal Suspension (FLONASE)Indicat ions:Chronic rhinitis Administer 2 Sprays into each nostril daily. 16 g 11 0 Active Rosuvastatin Calcium 40 MG Oral Tablet (Crestor) 3 Active Ketoconazole 2 % External Shampoo (Nizoral) Apply topically to affected area every 3 days. Use as shampoo at least 3 times weekly, lather, wait 5 min, then rinse 120 mL 5 3 Active Fluocinonide 0.05 % External Solution Apply to scalp nightly as needed for itching 60 mL 3 3 Active Lisinopril 5 MG Oral Tablet (Prinivil)Indica tions:RCA occlusion (HCC),S/P arterial stent TAKE 1 TABLET IN THE MORNING 90 Tablet 3 4 Active Metoprolol Tartrate 25 MG Oral Tablet (Lopressor)Indic ations:Old [place] (myocardial infarction) TAKE ONE-HALF (1/2) TABLET IN THE MORNING AND ONE-HALF (1/2) TABLET BEFORE BEDTIME 90 Tablet 3 4 Active Ketoconazole 2 % External Shampoo (Nizoral)Indicat ions:Seborrheic dermatitis of scalp Apply topically to affected area every 3 days. Massage into scalp, rinse out after 5-10 minutes. Completed 3x weekly until resolved, then once weekly as maintenance. 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 (L cheek. Dr. Jerez, years ago) Prediabetes 07/23/2020 Overview: Per Prediabetes protocol HTN, goal below 130/80 07/07/2019 Osteoarthritis of thumb 06/08/2017 Old [place] (myocardial infarction) 06/08/2017 Coronary artery disease invo lving [place] coronary artery of [place] heart without angina pectoris 01/06/2017 Dyslipidemia, goal LDL below 100 08/22/2013 documented as of this encounter (statuses as of 08/30/2024) Resolved Problems Problem Noted Date Diagnosed Date Resolved Date Moderate single current epis ode of major depressive disorder 01/06/2017 07/07/2019 Dyslipidemia, goal to be determined 08/23/2009 08/22/2013 Overview (08/23/2009): Per Lipid Taxonomy. Special screening for malign ant neoplasms, colon 02/05/2006 06/09/2017 Overview (02/05/2006): Colonoscopy 01/30/06--(1) tubular adenoma (1) hyperplastic polyp--repeat 5 years HISTORY OF TOBACCO USE 06/17/200006/09 Mixed dyslipidemia 06/17/2000 9 Overview (08/23/2009): Per Lipid Taxonomy. Actinic keratosis 06/17/2000 06/09/2017 documented as of this encounter (statuses as of 08/30/2024) Immunizations Name Administration Dates Next Due COVID-19 mRNA, LNP-s, No Pre serve, 2-Dose Series ([employer]) 09/03/2021,12/19/2020,11/28/2020 Pneumococcal Conjugate Vacc, 13 Valent (Prevnar) 01/28/2017 Pneumococcal Polysaccharide PPV23 (Pneumovax) 01/25/2015 Season Influenza, Quad, PF, Adjuvanted, 65+ Yrs, IM (FLUAD) 07/17/2020 Seasonal Influenza, PF, 6 M & above, IM , (FluLaval or Fluzone) 06/02/2018 Seasonal Influenza, Quadriva lent Hd (Fluzone Hd) 09/11/2023,09/10/2022 Seasonal Influenza, Quadriva lent, No Preserve, IM 05/31/2021 Seasonal Influenza, Trivalen t, Adjuvanted, 65+ YRS, PF, (Fluad) 07/07/2019 TDAP (age 10 and older)(Boostrix) 01/28/2016 Varicella Zoster Vaccine (Adult) 08/07/2015 documented as of this encounter Social History Tobacco Use Types Packs/Day Years Used Date Smoking Tobacco: Former Cigarettes 1 30 1 - 06/14/2016 Smokeless Tobacco: Never Alcohol Use Standard Drinks/Week Comments Yes 0 (1 standard drink = 0.6 oz pure alcohol) few beers on bowling night/ 5 beers once per wk or less. 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 Not on file Not on file Not on file Not on file Not on file Not on file Not on file documented as of this encounter Miscellaneous Notes * Telephone Encounter - Angeles Cordova ZHOU - 08/30/2024 10:34 AM EST Care Gaps Comprehensive Care Outreach Last Office/Telemedicine Visit: 08/16/2024 (in office), Visit date not found (telemedicine) Next Office Visit: 09/13/2024 Hemoglobin AIC Results: Lab Results Component Value Date/Time HEMOGLOBIN A1C - [facility] 6.4 (H) 03/11/2024 08:13 AM HEMOGLOBIN A1C - [facility] 6.5 (H) 09/11/2023 09:20 AM HEMOGLOBIN A1C - [facility] 6.3 (H) 09/10/2022 08:45 AM HEMOGLOBIN A1C - [facility] 6.4 (H) 07/10/2020 08:47 AM BP Readings from Last 1 Encounters: 08/16/24 130/77 Reviewed Health Maintenance below: Health Maintenance Topic Date Due Hepatitis C Screening Never done Zoster Vaccines (2 of 3) 10/02/2015 Adult Wellness Visit Never done Colorectal Cancer Screening 08/22/2021 Depression Screening 09/10/2023 Influenza Vaccine (FLU shot) (1) 05/15/2024 COVID-19 Vaccine ( season) 2024 GFR 09/11/2024 Cologuard due Lab awv Care Gap Outreach Action Taken: Left message and MyChart message sent documented in this encounter Plan of Treatment Upcoming Encounters Date Type Department Care Team (Late st Contact Info) Description 09/13/2024 8:20 AM EST Office Visit [facility] [address] [place] [phone] Irineo Davila MD [address] [facility] [place] [address] 10/06/2024 10:45 AM EST Imaging Radiology [address] [facility] [place] [place] [address] 10/12/2024 10:30 AM EST Office Visit Orthopaedics, [facility] [address] [place] [address] Davie Arellano PA-C [address] [place] [address] 06/29/2025 9:15 AM EDT Office Visit Dermatology [facility] [address] [place] [address] Ike Malik MD [address] [place] [address] Health Maintenance Due Date Last Done Comments Hepatitis C Screening 01/12/1968 Sigmoidoscopy 1995 Fecal Occult Blood Test 07/19/2001 07/19/2000 Zoster Vaccines (2 of 3) 10/02/2015 08/07/2015 Adult Wellness Visit 01/12/2016 Colonoscopy 06/26/2016 06/26/2011, 01/30/2006 Colorectal Cancer Screening 08/22/2021 Depression Screening 09/10/2023 09/10/2022 COVID-19 Vaccine ( season) 2024 09/03/2021, 12/19/2020, 11/28/2020 Influenza Vaccine (FLU shot) (#1) 2024 09/11/2023, 09/10/2022, 06/05/2021, Additional history exists Cologuard 08/21/2024 08/21/2021, 07/16, 08/12/2021, Additional history exists GFR 09/11/2024 09/11/2023, 08/15, 07/12/2021, Additional history exists HbA1c 03/11/2025 03/11/2024, 08/15, 09/10/2022, Additional history exists DTap/Tdap Vaccines (2 - Td or Tdap) 01/27/2026 01/28/2016, 10/09/2005, 10/09/2005, Additional history exists Albumin/Creatinine Ratio 09/11/2026 09/11/2023, 08/15 RETIRED - COLONOSCOPY-EVERY 5 YRS AGES 18-100 Discontinued 06/26/2011, 01/30/2006, 01/30/2006 (Done elsewhere) AAA Screening Completed 09/09/2016 Pneumococcal Vaccine: 65+ Years Completed 01/28/2017, 01/25/2015 Lung Cancer Screening Completed 10/05/2023 , 10/03/2022, 10/02/2021, Additional history exists HPV (Gardasil) Vaccine Aged Out No lo nger eligible based on patient's age to complete this topic Hepatitis B Vaccine Aged Out No longe r eligible based on patient's age to complete this topic MENINGOCOCCAL (MENACTRA/MENVEO) Aged Out No longer eligible based on patient's age to complete this topic documented as of this encounter Medical Devices Not on filedocumented as of this encounter Care Teams 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
--- OUTSIDE RECORDS SUMMARY | 2024-09-20 00:11 | External Medical Summary | Summary of Care ---
Author Name Unknown Organization [facility] Address [address] [facility] [place] [address] Phone [phone] Care Team Providers Care Director Pediatric Name Role Phone Bronson Davila MD Primary Care Provider [phone] Reason for Visit * Reason Comments Skin Check Pt here for annual f ull body skin check, pt reports a lesion on his right ear he would like evaluated.Hx: MIS, BCC Encounter Details Date Type Department Care Team (Late st Contact Info) Description 06/28/2024 9:15 AM EDT Office Visit Dermatology [facility] [place] [address] [facility] [place] [address] Ike Malik MD [address] [place] [place] [address] Seborrheic dermatitis of scalp*; Skin neoplasm; Actinic skin damage; Hx of malignant melanoma; Seborrheic keratoses; Hx of basal cell carcinoma; Scar Allergies Active Allergy Reactions Criticality Noted Date Comments Atorvastatin 06/08/2017 Saccharin Nausea/vomiting 07/15/2016 documented as of this encounter (statuses as of 06/28/2024) Medications Medication Sig Dispensed Refills Start Date End Date Status ASPIRIN TABS 81 MG ORIndications:Fam hx-cardiovas dis NEC 34 5 06/17/2000 Active Diclofenac Sodium 1 % gelIndications:Oste oarthritis of thumb, right Place 2 g topically on the skin 4 times a day as needed for Pain. 3 Tube 3 06/08/2017 Active Additional Information Patient not taking.Reported on 09/11/2023 Loperamide HCl (IMODIUM A-D) 2 MG TabletIndications:D iarrhea, unspecified type Take 1 Tab by mouth daily as needed for Diarrhea. Then one tablet after each loose BM, no more than 4 tablets per day for up to two days 18 Tab 06/08/2017 Active nitroglycerin (NITROSTAT) 0.[address] 1 Tab under the tongue as needed for Pain, Chest. May repeat 3 times. If chest pain continues, call 911. 25 Tab 11 06/02/2018 Active Zoster Vac Recomb Adjuvanted 50 MCG/0.5ML Intramuscular Suspension Reconstituted (SHINGRIX)Indicatio ns:Need for shingles vaccine Inject 0.5 mL into a large muscle now and repeat dose in 60 to 180 days 1 Each 1 07/10/2020 Active Fluticasone Propionate 50 MCG/ACT Nasal Suspension (FLONASE)Indication s:Chronic rhinitis Administer 2 Sprays into each nostril daily. 16 g 11 07/10/2020 Active Rosuvastatin Calcium 20 MG Oral Tablet (Crestor)Indication s:Dyslipidemia, goal LDL below 100 One daily in PM 09/10/2022 A ctive methylPREDNISolone 4 MG Oral Tablet Therapy Pack (Medrol Dosepack) follow package directions 21 Tablet 02/19/2023 Active Additional Information Patient not taking.Reported on 09/11/2023 Rosuvastatin Calcium 40 MG Oral Tablet (Crestor) 04/24/2023 Active Ketoconazole 2 % External Shampoo (Nizoral) Apply topically to affected area every 3 days. Use as shampoo at least 3 times weekly, lather, wait 5 min, then rinse 120 mL 5 06/18/2023 Active Additional Information Patient not taking.Reported on 06/28/2024 Fluocinonide 0.05 % External Solution Apply to scalp nightly as needed for itching 60 mL 3 06/18/2023 Active Cetirizine HCl 10 MG Oral Tablet (ZyrTEC) Take 1 Tablet by mouth in the morning. 90 Tablet 2 12/16/2023 Active Lisinopril 5 MG Oral Tablet (Prinivil)Indicatio ns:RCA occlusion (HCC),S/P arterial stent TAKE 1 TABLET IN THE MORNING 90 Tablet 3 12/26/2023 Active Metoprolol Tartrate 25 MG Oral Tablet (Lopressor)Indicati ons:Old [place] (myocardial infarction) TAKE ONE-HALF (1/2) TABLET IN THE MORNING AND ONE-HALF (1/2) TABLET BEFORE BEDTIME 90 Tablet 3 02/08/2024 Active Ketoconazole 2 % External Shampoo (Nizoral)Indication s:Seborrheic dermatitis of scalp Apply topically to affected area every 3 days. Massage into scalp, rinse out after 5-10 minutes. Completed 3x weekly until resolved, then once weekly as maintenance. 120 mL 11 06/28/2024 Active Ketoconazole 2 % External ShampooIndications: Seborrheic dermatitis of scalp Apply topically to affected area every 3 days. Massage into scalp, rinse out after 5-10 minutes. Completed 3x weekly until resolved, then once weekly as maintenance. 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 (L cheek. Dr. Jerez, years ago) Prediabetes 07/23/2020 Overview: Per Prediabetes protocol HTN, goal below 130/80 07/07/2019 Osteoarthritis of thumb 06/08/2017 Old [place] (myocardial infarction) 06/08/2017 Coronary artery disease invo lving [place] coronary artery of [place] heart without angina pectoris 01/06/2017 Dyslipidemia, goal LDL below 100 08/22/2013 documented as of this encounter (statuses as of 06/28/2024) Resolved Problems Problem Noted Date Diagnosed Date Resolved Date Moderate single current epis ode of major depressive disorder 01/06/2017 07/07/2019 Dyslipidemia, goal to be determined 08/23/2009 08/22/2013 Overview: Per Lipid Taxonomy. Special screening for malign ant neoplasms, colon 02/05/2006 06/09/2017 Overview: Colonoscopy 01/30/06--(1) tubular adenoma (1) hyperplastic polyp--repeat 5 years HISTORY OF TOBACCO USE 06/17/200006/09 Mixed dyslipidemia 06/17/2000 9 Overview: Per Lipid Taxonomy. Actinic keratosis 06/17/2000 06/09/2017 documented as of this encounter (statuses as of 06/28/2024) Immunizations Name Administration Dates Next Due COVID-19 mRNA, LNP-s, No Pre serve, 2-Dose Series ([employer]) 09/03/2021,12/19/2020,11/28/2020 Pneumococcal Conjugate Vacc, 13 Valent (Prevnar) [...] 5 beers once per wk or less. 2016 2-3 beers when he plays round of golf PHQ-2 Answer Date Recorded PHQ Adult Total Score 0 09/10/2022 Hunger Vital Sign Answer Date Recorded Worried About Running Out of Food in the Last Ye ar Never true 07/07/2019 Ran Out of Food in the Last Year Never true 07/07/2019 Utilities Answer Date Recorded Do you have trouble paying y our heating, water, or electric bill? (Adult - for ages 18 years and over) Not on file 03/01/2024 Is your family able to pay t he heat, water, or electric bill? (Household - for ages 0-17 years) Not on file 03/01/2024 Does your family have access to good internet? (Household - for ages 0-17 years) Not on file 03/01/2024 Social Connections Answer Date Recorded How often do you feel lonely or isolated from those around you? (Adult - for ages 18 years and over) Not on file 03/01/2024 Sex and Gender Information Value Date Recorded Sex Assigned at Male 07/07/2019 7:34 AM EDT Gender Identity Male 07/07/2019 7:34 AM EDT Sexual Orientation Straight 07/07/2019 7: 34 AM EDT Job Start Date Occupation Industry Not on file Not on file Not on file documented as of this encounter Progress Notes * Ike Malik MD - 06/28/2024 9:33 AM EDT Chief Complaint Patient presents with Skin Check Pt here for annual full body skin check, pt reports a lesion on his right ear he would like evaluated. Hx: MIS, BCC Rom Robertson is a 74 year old male with history of malignant melanoma, seen today to be monitored for recurrence at previously treated sites and to be evaluated for the development of new lesions. New growth on right ear, near prior melanoma. Not sure how long present Retired [employer], Melanoma History: melanoma in situ, right mid helix, Mohs 2020 Personal hx of Skin Cancer: basal cell carcinoma? (L cheek. Dr. Jerez, years ago) Review of Systems: Complete review of systems performed with attention to potential metastatic disease Physical Examination: Constitutional: Patient is well-appearing and in no acute distress. Skin: Exam of the scalp, face, conjunctivae, oral mucosa, neck, chest, back, abdomen, buttocks, andall four extremities is performed. All areas are normal except for the following findings. -There is a well-healed primary site without clinical evidence of local, satellite, or in-transit recurrence. Scattered on face, chest, back - diffuse mottled hypopigmented and hyperpigmented macules without significant irregularity. Associated telangiectasias At the trunk and extremities are several scattered pedro/brown hyperkeratotic stuck on appearing waxypapules. A. Right superior helix - 5mm brown waxy papule - favor SK, hx of MIS on same ear Scalp with scattered non-adherent flakes ASSESSMENT and PLAN: History of Melanoma. -History was obtained regarding new or changing moles. -Complete physical skin exam performed. -Patient counseled on self-examination for new or changing moles. The signs and symptoms of skin cancer were reviewed and the patient was advised to practice sun protection and sun avoidance, use daily sunscreen (SPF > 30), and perform regular self-skin and lymph node exams on a monthly basis. I reviewed changes to watch for including changes in the A-B-C-D's,asymmetry of a lesion, changes in border, color or diameter as well as non healing lesions. I instructed the patient to call if any new lesions appear or current lesions change. Additional Problems: Scar. - Well healed. No evidence of disease recurrence. History of Nonmelanoma Skin Cancer - Well healed scar(s) with no evidence of recurrence -Daily sun protection recommended as discussed above Chronic Actinic Damage - Discussed that skin changes are due to chronic sun exposure. - Daily sun protection recommended Seborrheic keratoses - The benign nature of these lesions was discussed with the patient and that no treatment is indicated today. Skin neoplasm(s) - Shave biopsy of the following lesion(s) A. Right superior helix - 5mm brown waxy papule - favor SK, hx of MIS on same ear Procedure - biopsy of ear Biopsy by shave was recommended for the lesion(s) noted above to establish and confirm diagnosis. The procedure, risks, benefits, alternatives and expected outcomes were discussed with the patient and consent was obtained. Time out called. Patient identified, procedure verified, site(s) identified and verified. Patient and staff present in agreement. Area prepped with alcohol and anesthetized using 0.5% lidocaine with epinephrine at 1:200,000 concentration. Biopsy of lesion(s) performed. 20% AlCl and bandaging applied. Specimen(s) sent to pathology. Patient instructed in routine post-op care. Seborrheic dermatitis - Orders Placed This Encounter Medications Ketoconazole 2 % External Shampoo (Nizoral) Sig: Apply topically to affected area every 3 days. Massage into scalp, rinse out after 5-10 minutes. Completed 3x weekly until resolved, then once weekly as maintenance. Dispense: 120 mL Refill: 11 Follow up high priority melanoma clinic 12 months. Ike Malik MD 06/28/2024, 9:34 AM CC: PCP: BRON[facility] DAVILA [address] [facility] [address] [phone] documented in this encounter Nursing Notes * Tea Lynch CMA - 06/28/2024 9:03 AM EDT Chief Complaint Patient presents with Skin Check Pt here for annual full body skin check, pt reports a lesion on his right ear he would like evaluated. Hx: MIS, BCC documented in this encounter Plan of Treatment Upcoming Encounters Date Type Department Care Team (Late st Contact Info) Description 07/11/2024 1:30 PM EDT Office Visit Orthopaedics, [address] [place] [address] [place] [address] Davie Arellano PA-C [address] [place] [address] 09/13/2024 8:20 AM EST Office [facility] [address] [facility] [address] Bronson Davila MD [address] [place] [facility] [place] [address] 10/06/2024 10:45 AM EST Imaging Radiology [facility] [address] [facility] [place] [address] [facility] [place] [address] 06/29/2025 9:15 AM EDT Office Visit Dermatology [facility] [address] [place] [address] Ike Malik MD [address] [place] [address] Pending Results Name Type Priority Associated Diagnoses Date /Time SURGICAL PATHOLOGY Pathology Routine Skin neoplasm 06/28/2024 9:48 AM EDT Health Maintenance Due Date Last Done Comments [...] Not on filedocumented as of this encounter Visit Diagnoses Diagnosis Seborrheic dermatitis of scalp- Primary Other seborrheic dermatitis Skin neoplasm Neoplasm of unspecified nature of bone, soft tissue, and skin Actinic skin damage Other dermatitis due to solar radiation Hx of malignant melanoma Personal history of malignant melanoma of skin Seborrheic keratoses Hx of basal cell carcinoma Personal history of other malignant neoplasm of skin Scar Scar condition and fibrosis of skin documented in this encounter Care Teams Director Pediatric Relationship Specialty Start Date End Date Bronson Davila MD [address] [place] [address] PCP - General 11/21/1997 documented as of this encounter
--- OUTSIDE RECORDS SUMMARY | 2024-09-20 00:11 | External Medical Summary | Summary of Care ---
Author Name Unknown Organization [facility] Address [address] [facility] [place] [address] Phone [phone] Care Team Providers Care Tire Sorter Name Role Phone Irineo Davila MD Primary Care Provider [phone] Reason for Visit * Reason Comments Knee Pain Left knee injection, last injection 01/06/24 Encounter Details Date Type Department Care Team (Late st Contact Info) Description 04/08/2024 2:00 PM EDT Office Visit Orthopaedics, Lyn Mejia [address] [place] [address] Davie Arellano PA-C [address] [place], [place] [phone] Primary osteoarthritis of left knee* Allergies Active Allergy Reactions Criticality Noted Date Comments Atorvastatin 06/08/2017 Saccharin Nausea/vomiting 07/15/2016 documented as of this encounter (statuses as of 04/08/2024) Medications Medication Sig Dispensed Refills Start Date End Date Status ASPIRIN TABS 81 MG ORIndications:Fam hx-cardiovas dis NEC 34 5 06/17/2000 Active Diclofenac Sodium 1 % gelIndications:Osteo arthritis of thumb, right Place 2 g topically on the skin 4 times a day as needed for Pain. 3 Tube 3 06/08/2017 Active Additional Information Patient not taking.Reported on 09/11/2023 Loperamide HCl (IMODIUM A-D) 2 MG TabletIndications:Di arrhea, unspecified type Take 1 Tab by mouth [...] Recomb Adjuvanted 50 MCG/0.5ML Intramuscular Suspension Reconstituted (SHINGRIX)Indication s:Need for shingles vaccine Inject 0.5 mL into a large muscle now and repeat dose in 60 to 180 days 1 Each 1 07/10/2020 Active Fluticasone Propionate 50 MCG/ACT Nasal Suspension (FLONASE)Indications :Chronic rhinitis Administer 2 Sprays into each nostril daily. 16 g 11 07/10/2020 Active Ketoconazole 2 % External ShampooIndications:S eborrheic dermatitis of scalp Apply topically to affected area every 3 days. Massage into scalp, rinse out after 5-10 minutes. Completed 3x weekly until resolved, then once weekly as maintenance. 120 mL 2 11/01/2020 Active Additional Information Patient not taking.Reported on 07/12/2021 Rosuvastatin Calcium 20 MG Oral Tablet (Crestor)Indications :Dyslipidemia, goal LDL below 100 One daily in PM 09/10/2022 Active methylPREDNISolone 4 MG Oral Tablet Therapy Pack [...] then rinse 120 mL 5 06/18/2023 Active Fluocinonide 0.05 % External Solution Apply to scalp nightly as needed for itching 60 mL 3 06/18/2023 Active Cetirizine HCl 10 MG Oral Tablet (ZyrTEC) Take 1 Tablet by mouth in the morning. 90 Tablet 2 12/16/2023 Active Lisinopril 5 MG Oral Tablet (Prinivil)Indication s:RCA occlusion (HCC),S/P arterial stent TAKE 1 TABLET IN THE MORNING 90 Tablet 3 12/26/2023 Active Metoprolol Tartrate 25 MG Oral Tablet (Lopressor)Indicatio ns:Old CT (myocardial infarction) TAKE ONE-HALF (1/2) TABLET IN THE MORNING AND ONE-HALF (1/2) TABLET BEFORE BEDTIME 90 Tablet 3 02/08/2024 Active Hospital, Clinic, or Other Facility Administered Medication Ordered Dose Route Frequency Start Date End Date Status lidocaine 1% 1 mL - triamcinolone acetonide 40 mg/mL 1 mL inj 2 mLIndications:Primary osteoarthritis of left knee 2 mL IJ ONCE 04/08/2024 04/08/20 24 Ended documented as of this encounter (statuses as of 04/08/2024) Active Problems Problem Noted Date Diagnosed Date 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 (L cheek. Dr. Jerez, years ago) Prediabetes 07/23/2020 Overview: Per Prediabetes protocol HTN, goal below 130/80 07/07/2019 Osteoarthritis of thumb 06/08/[address] (myocardial infarction) 06/08/2017 Coronary artery disease invo lving [place] coronary artery of [place] heart without angina pectoris 01/06/2017 Dyslipidemia, goal LDL below 100 08/22/2013 documented as of this encounter (statuses as of 04/08/2024) Resolved Problems Problem Noted Date Diagnosed Date Resolved Date Moderate single current epis ode of major depressive disorder 01/06/2017 07/07/2019 Dyslipidemia, goal to be determined 08/23/2009 08/22/2013 Overview: Per Lipid Taxonomy. Special screening for malign ant neoplasms, colon 02/05/2006 06/09/2017 Overview: Colonoscopy 01/30/06--(1) tubular adenoma (1) hyperplastic polyp--repeat 5 years HISTORY OF TOBACCO USE 06/17/200006/09 Mixed dyslipidemia 06/17/2000 12/10/200 9 Overview: Per Lipid Taxonomy. Actinic keratosis 06/17/2000 06/09/2017 documented as of this encounter (statuses as of 04/08/2024) Immunizations Name Administration Dates Next Due COVID-19 mRNA, LNP-s, No Pre serve, 2-Dose Series (Pfizer) 09/03/2021,12/19/2020,11/28/2020 Diptheria/Tetanus (Adult) 04/07/1995 Pneumococcal Conjugate Vacc, 13 Valent (Prevnar) 01/28/2017 Pneumococcal Polysaccharide PPV23 (Pneumovax) 01/25/2015 Season Influenza, Quad, PF, Adjuvanted, 65+ Yrs, IM (FLUAD) 07/17/2020 Seasonal Influenza, PF, 6 M & above, IM , (FluLaval or Fluzone) 06/02/2018 Seasonal Influenza, Quadriva lent Hd (Fluzone Hd) 09/11/2023,09/10/2022 Seasonal Influenza, Quadriva lent, No Preserve, IM 05/31/2021 Seasonal Influenza, Trivalen t, Adjuvanted, 65+ yrs 07/07/2019 TD - Tetanus/Diptheria (ADULT) 10/09/2005 TDAP (age 10 and older)(Boostrix) 01/28/2016 Varicella [...] on file documented as of this encounter Last Filed Vital Signs Vital Sign Reading Time Taken Comments Blood Pressure - - Pulse - - Temperature 36.8 C (98.2 F) 04/08/2024 1:56 PM ED T Respiratory Rate - - Oxygen Saturation - - Inhaled Oxygen Concentration - - Weight - - Height - - Body Mass Index - - documented in this encounter Progress Notes * Davie Arellano PA-C - 04/08/2024 3:05 PM EDT Nursing Notes: Naila Reyes, [facility] 04/08/24 1357 Signed Chief Complaint Patient presents with Knee Pain Left knee injection, last injection 01/06/24 Pain of 2 or 3 out of 10 today, with activity. Last injection effective 1 1/2 - 2 months. Pt states injection in lateral knee was less effective than injection in medial knee. Injection Procedure Note: LEFT Knee: Time out: Prior to injection, a time out was called to confirm the administration of appropriate medicine, patient name, procedure and confirm to the best of our ability and knowledge the presence of any necessary risks, benefits and complication including infection and hematoma, worsening symptoms and increasing blood sugar level. Patient verbalizes understanding. Sterile techinique applied. Knee joint was injected with 1ml of 1% Lidocaine and 1 mL, triamcinolone 40 mg. Patient tolerated procedure with no significant bleeding or adverse reaction. Patient instructed to call or return to clinic for fever or warmth and redness at injection site for potential infection. Patient also advised as to potential for steroid flare reaction including increased pain and redness at injection site which should be treated with ice and resolve within 24 hours. Davie Arellano PA-C documented in this encounter Nursing Notes * Naila Reyes CMA - 04/08/2024 1:52 PM EDT Chief Complaint Patient presents with Knee Pain Left knee injection, last injection 01/06/24 Pain of 2 or 3 out of 10 today, with activity. Last injection effective 1 1/2 - 2 months. Pt states injection in lateral knee was less effective than injection in medial knee. documented in this encounter Plan of Treatment Upcoming Encounters Date Type Department Care Team (Late st Contact Info) Description 06/30/2024 9:00 AM EDT Office Visit Dermatology [facility] [address] [facility] [place] [address] Carmen Mann MD [address] [facility] [place] [address] 07/11/2024 1:30 PM EDT Office Visit Orthopaedics, [address] [place] [address] Davie Arellano PA-C [address] [place] [address] 09/13/2024 8:20 AM EST Office Visit [facility] [address] [facility] [phone] Irineo Davila MD [address] [place] [address] 10/06/2024 10:45 AM EST Imaging Radiology [address], [place] [address] [facility] [place] [address] Health Maintenance Due Date Last Done Comments Hepatitis C Screening 01/12/1968 Sigmoidoscopy 1995 Fecal Occult Blood Test 07/19/2001 07/19/2000 Zoster Vaccines (2 of 3) 10/02/2015 08/07/2015 Colonoscopy 06/26/2016 06/26/2011, 01/30/2006 Colorectal Cancer Screening 08/22/2021 COVID-19 Vaccine ( - season) 2023 09/03/2021, 12/19/2020, 11/28/2020 Depression Screening 09/10/2023 09/10/2022 Influenza Vaccine (FLU shot) (#1) 2024 09/11/2023, 09/10/2022, 06/05/2021, Additional history exists Cologuard 08/21/2024 08/21/2021, 07/16, 08/12/2021, Additional history exists GFR 09/11/2024 09/11/2023, 08/15, 07/12/2021, Additional history exists HbA1c 03/11/2025 03/11/2024, 08/15, 09/10/2022, Additional history exists DTaP,Tdap,and Td Vaccines (2 - Td or Tdap) 01/27/2026 [...] as of this encounter Visit Diagnoses Diagnosis Primary osteoarthritis of left knee- Primary Primary localized osteoarthrosis, lower leg documented in this encounter Administered Medications Inactive Administered Medications - up to 3 most recent administrations Medication Order MAR Action Action Date Dose Rate Site lidocaine 1% 1 mL - triamcinolone acetonide 40 mg/mL 1 mL inj 2 mL 2 mL, Injection, ONCE, On Thu04/08/24 at 1545, For 1 dose, Lidocaine 1% 1mL Triamcinolone Acetonide 40 mg/mL 1 mL (Final concentration = 20 mg/mL) REFRIGERATE and SHAKE WELL Given 04/08/2024 3:21 PM EDT 2 mL Knee Left documented in this encounter Care Teams Tire Sorter Relationship Specialty Start Date End Date Irineo Davila MD [address] [place] [address] PCP - General 11/21/1997 documented as of this encounter
--- OUTSIDE RECORDS SUMMARY | 2024-09-20 00:11 | External Medical Summary | Summary of Care ---
Author Name Unknown Organization [facility] Address [address] [facility] [place] [address] Phone [phone] Care Team Providers Care Piece Marker Small Arms Name Role Phone Bronson Davila MD Primary Care Provider [phone] Reason for Visit * Reason Comments eRx-Medication Refill Encounter Details Date Type Department Care Team (Late st Contact Info) Description 08/12/2024 Refill [facility] [address] [facility] [place] [address] Bronson Davila MD [address] [place] [address] Allergies Active Allergy Reactions Criticality Noted Date Comments Atorvastatin 06/08/2017 Saccharin Nausea/vomiting 07/15/2016 documented as of this encounter (statuses as of 08/12/2024) Medications ASPIRIN TABS 81 MG ORIndications:Fa m hx-cardiovas dis NEC 34 5 06/17/20 00 Active Diclofenac Sodium 1 % gelIndications:O steoarthritis of thumb, right Place 2 g topically on the skin 4 times a day as needed for Pain. 3 Tube 3 06/08/20 17 Active Additional Information Patient not taking.Reported on 09/11/2023 Loperamide HCl (IMODIUM A-D) 2 MG TabletIndication s:Diarrhea, unspecified type Take 1 Tab by mouth daily as needed for Diarrhea. Then one tablet after each loose BM, no more than 4 tablets per day for up to two days 18 Tab 06/08/20 17 Active nitroglycerin (NITROSTAT) 0.[address] 1 Tab under the tongue as needed for Pain, Chest. May repeat 3 times. If chest pain continues, call 911. 25 Tab 11 06/02/20 18 Active Zoster Vac Recomb Adjuvanted 50 MCG/0.5ML Intramuscular Suspension Reconstituted (SHINGRIX)Indica tions:Need for shingles vaccine Inject 0.5 mL into a large muscle now and repeat dose in 60 to 180 days 1 Each 1 07/10/20 20 Active Fluticasone Propionate 50 MCG/ACT Nasal Suspension (FLONASE)Indicat ions:Chronic rhinitis Administer 2 Sprays into each nostril daily. 16 g 11 07/10/20 20 Active Rosuvastatin Calcium 20 MG Oral Tablet (Crestor)Indicat ions:Dyslipidemi a, goal LDL below 100 One daily in PM 09/10/20 22 Active methylPREDNISolo ne 4 MG Oral Tablet Therapy Pack (Medrol Dosepack) follow package directions 21 Tablet 02/20/20 23 Active Additional Information Patient not taking.Reported on 09/11/2023 Rosuvastatin Calcium 40 MG Oral Tablet (Crestor) 04/24/20 23 Active Ketoconazole 2 % External Shampoo (Nizoral) Apply topically to affected area every 3 days. Use as shampoo at least 3 times weekly, lather, wait 5 min, then rinse 120 mL 5 06/18/20 23 Active Additional Information Patient not taking.Reported on 06/28/2024 Fluocinonide 0.05 % External Solution Apply to scalp nightly as needed for itching 60 mL 3 06/18/20 23 Active Lisinopril 5 MG Oral Tablet (Prinivil)Indica tions:RCA occlusion (HCC),S/P arterial stent TAKE 1 TABLET IN THE MORNING 90 Tablet 3 12/26/19 24 Active Metoprolol Tartrate 25 MG Oral Tablet (Lopressor)Indic ations:Old [place] (myocardial infarction) TAKE ONE-HALF (1/2) TABLET IN THE MORNING AND ONE-HALF (1/2) TABLET BEFORE BEDTIME 90 Tablet 3 02/08/20 24 Active Ketoconazole 2 % External Shampoo (Nizoral)Indicat ions:Seborrheic dermatitis of scalp Apply topically to affected area every 3 days. Massage into scalp, rinse out after 5-10 minutes. Completed 3x weekly until resolved, then once weekly as maintenance. 120 mL 11 06/28/20 24 Active Cetirizine HCl 10 MG Oral Tablet (ZyrTEC) TAKE 1 TABLET IN THE MORNING 90 Tablet 1 08/12/20 Active Cetirizine HCl 10 MG Oral Tablet (ZyrTEC) Take 1 Tablet by mouth in the morning. 90 Tablet 2 12/16/19 24 2023 Discontinued documented as of this encounter (statuses as of 08/12/2024) Active Problems Problem Noted Date Diagnosed Date [...] infarction) 06/08/2017 Coronary artery disease invo lving [place] coronary artery of [place] heart without angina pectoris 01/06/2017 Dyslipidemia, goal LDL below 100 08/22/2013 documented as of this encounter (statuses as of 08/12/2024) Resolved Problems Problem Noted Date Diagnosed Date [...] as of this encounter (statuses as of 08/12/2024) Immunizations Name Administration Dates Next Due COVID-19 [...] encounter Miscellaneous Notes * Telephone Encounter - Farhana Murray RPh - 08/12/2024 5:45 PM ESTSigned Prescriptions: Disp Refills Cetirizine HCl 10 MG Oral Tablet (ZyrTEC) 90 Tab*1 Sig: TAKE 1 TABLET IN THE MORNINGAuthorizing Provider: BRONSON DAVILA User: FARHANA MURRAY documented in this encounter Plan of Treatment Upcoming Encounters Date Type Department Care Team (Late st Contact Info) Description 09/13/2024 8:20 AM EST [facility] [address] [place] [address] Bronson Davila MD [address] [place] [address] 10/06/2024 10:45 AM EST Imaging Radiology [address] [place] [address] 10/12/2024 10:30 AM EST Office Visit Orthopaedics, [address], Lyn [address] [place] [address] Davie Arellano PA-C [address] [place] [address] 06/29/2025 9:15 AM EDT Office Visit Dermatology [place] [address] [facility] [place] [address] Ike Malik MD [address] [facility] [place] [address] Health Maintenance Due Date Last Done Comments [...] filedocumented as of this encounter Care Teams Piece Marker Small Arms Relationship Specialty Start Date End Date Bronson Davila MD [address] [place] [address] PCP - General 11/21/1997 documented as of this encounter
--- OUTSIDE RECORDS SUMMARY | 2024-09-20 00:11 | External Medical Summary | Summary of Care ---
Author Name Unknown Organization [facility] Address [address] [facility] [place] [address] Phone [phone] Care Team Providers Care Water Truck Driver Name Role Phone Irineo Davila MD Primary Care Provider [phone] Reason for Visit * Reason Comments Follow Up L knee injection, la st injection 04/08/24, Encounter Details Date Type Department Care Team (Late st Contact Info) Description 07/11/2024 1:30 PM EDT Office Visit Orthopaedics, Lyn Mejia [address] [place] [address] Davie Arellano PA-C [address] [place] [phone] Primary osteoarthritis of left knee* Allergies Active Allergy Reactions Criticality Noted Date Comments Atorvastatin 06/08/2017 Saccharin Nausea/vomiting 07/15/2016 documented as of this encounter (statuses as of 07/11/2024) Medications Medication Sig Dispensed Refills Start Date [...] Active Rosuvastatin Calcium 20 MG Oral Tablet (Crestor)Indications [...] Tartrate 25 MG Oral Tablet (Lopressor)Indicatio ns:Old [place] (myocardial infarction) TAKE ONE-HALF (1/2) TABLET IN THE MORNING AND ONE-HALF (1/2) TABLET BEFORE BEDTIME 90 Tablet 3 02/08/2024 Active Ketoconazole 2 % External Shampoo (Nizoral)Indications :Seborrheic dermatitis of scalp Apply topically to affected area every 3 days. Massage into scalp, rinse out after 5-10 minutes. Completed 3x weekly until resolved, then once weekly as maintenance. 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 (L cheek. Dr. Jerez, years ago) Prediabetes 07/23/2020 Overview: Per Prediabetes protocol HTN, goal below 130/80 07/07/2019 Osteoarthritis of thumb 06/08/2017 Old [place] (myocardial infarction) 06/08/2017 Coronary artery disease invo lving [place] coronary artery of [place] heart without angina pectoris 01/06/2017 Dyslipidemia, goal LDL below 100 08/22/2013 documented as of this encounter (statuses as of 07/11/2024) Resolved Problems Problem Noted Date Diagnosed Date [...] as of this encounter (statuses as of 07/11/2024) Immunizations Name Administration Dates Next Due COVID-19 [...] t, Adjuvanted, 65+ YRS, PF, (Fluad) 07/07/2019 TD - Tetanus/Diptheria (ADULT) 10/09/2005 TDAP (age 10 and older)(Boostrix) 01/28/2016 Varicella Zoster Vaccine (Adult) 08/07/2015 documented as of this encounter Social History Tobacco Use Types Packs/Day Years Used Date Smoking Tobacco: Former Cigarettes 1 30 1 - 06/14/2016 Smokeless Tobacco: Never Tobacco Cessation:Counseling Given: Not Answered Alcohol Use Standard Drinks/Week Comments Yes 0 [...] Pressure - - Pulse - - Temperature - - Respiratory Rate - - Oxygen Saturation - - Inhaled Oxygen Concentration - - Weight 112.4 kg (247 lb 12.8 oz) 07/11/2024 1:36 PM EDT Height 175.3 cm (5' 9") 07/11/2024 1:36 PM EDT Body Mass Index 36.59 07/11/2024 1:36 PM EDT documented in this encounter Progress Notes * Davie Arellano PA-C - 07/11/2024 2:15 PM EDT Nursing Notes: [place], ZHOU 07/11/24 1337 Signed Chief Complaint Patient presents with Follow Up L knee injection, last injection 04/08/24, (M17.12) Primary osteoarthritis of left knee (primary encounter diagnosis) Plan: lidocaine 1% 1 mL - triamcinolone acetonide 40 mg/mL 1 mL inj 2 mL Injection Procedure Note: LEFT Knee: Time out: [...] documented in this encounter Nursing Notes * [place] LPN - 07/11/2024 1:37 PM EDT Chief Complaint Patient presents with Follow Up L knee injection, last injection 04/08/24, documented in this encounter Plan of Treatment Upcoming Encounters Date Type Department Care Team (Late st Contact Info) Description 07/12/2024 11:30 AM EDT Office Visit Dermat[facility] [address] [facility] [place] [address] Ike Malik MD [address] [facility] [place] [address] 09/13/2024 8:20 AM EST Office Visit [facility] [address] [place] [address] Irineo Davila MD [address] [place] [address] 10/06/2024 10:45 AM EST Imaging Radiology [address] [facility] [address] 10/12/2024 10:30 AM EST Office Visit Orthopaedics, Lyn Mejia [address] [place] [address] Davie Arellano PA-C [address] [place] [address] 06/29/2025 9:15 AM EDT Office Visit [facility] [address] [place], [place] [address] Ike Malik MD [address] [place] [address] Health Maintenance Due Date Last Done Comments [...] 2 mL 2 mL, Injection, ONCE, On 07/11/24 at 1445, For 1 dose, Lidocaine 1% 1mL Triamcinolone Acetonide 40 mg/mL 1 mL (Final concentration = 20 mg/mL) REFRIGERATE and SHAKE WELL Given 07/11/2024 2:30 PM EDT 2 mL Knee Left documented in this encounter Care Teams Water Truck Driver Relationship Specialty Start Date End Date Irineo Davila MD [address] [place], [place] [phone] PCP - General 11/21/1997 documented as of this encounter
--- OUTSIDE RECORDS SUMMARY | 2024-09-20 00:11 | External Medical Summary | Summary of Care ---
Author Name Unknown Organization [facility] Address [address] [facility] [place] [address] Phone [phone] Care Team Providers Care Laboratory Administrative Director Name Role Phone Irineo Davila MD Primary Care Provider [phone] Reason for Visit * Reason Comments Follow Up L knee injection, la st injection 04/08/24, Encounter Details Date Type Department Care Team (Late st Contact Info) Description 07/11/2024 1:30 PM EDT Office Visit Orthopaedics, Lyn Mejia [address] [place] [address] Davie Arellano PA-C [address] [place] [phone] Primary osteoarthritis of left knee* Allergies Active [...] Tartrate 25 MG Oral Tablet (Lopressor)Indicatio ns:Old [place] (myocardial infarction) TAKE ONE-HALF (1/2) TABLET IN [...] left knee 2 mL IJ ONCE 07/11/2024 07/12/20 24 Active documented as of this encounter (statuses [...] 130/80 07/07/2019 Osteoarthritis of thumb 06/08/2017 Old [place] (myocardial infarction) 06/08/2017 Coronary artery disease invo lving [place] coronary artery of [place] heart without angina pectoris 01/06/2017 Dyslipidemia, goal [...] 07/11/2024 2:15 PM EDT Nursing Notes: [place] LPN 07/11/24 1337 Signed Chief Complaint Patient presents [...] 07/12/2024 11:30 AM EDT Office Visit Dermatology [address] [place] [address] Ike Malik MD 200 [place] [address] 09/13/2024 8:20 AM EST Office Visit [facility] [address] [place] [phone] Irineo Davila MD [address] [place] [address] 10/06/2024 10:45 AM EST Imaging Radiology [facility] [address] [facility] [address] 10/12/2024 10:30 AM EST Office Visit Orthopaedics, Lyn Mejia [address] [place] [address] Davie Arellano PA-C [address] [place] [address] 06/29/2025 9:15 AM EDT Office Visit D[facility]ology [facility] [address] [facility] [place] [address] Ike Malik MD 200 [facility] [place] [address] Health Maintenance Due Date Last Done Comments [...] osteoarthrosis, lower leg documented in this encounter Care Teams Laboratory Administrative Director Relationship Specialty Start Date End Date Irineo Davila MD [address] [place] [address] PCP - General 11/21/1997 documented as of this encounter
--- OUTSIDE RECORDS SUMMARY | 2024-09-20 00:11 | External Medical Summary | Summary of Care ---
Author Name Unknown Organization [facility] Address [address] [place] [address] Phone [phone] Care Team Providers Care Urgent Care Physician Name Role Phone Irineo Davila MD Primary Care Provider [phone] Reason for Visit * Reason Comments Knee Pain Left knee injection, last injection 01/06/24 Encounter Details Date Type Department Care Team (Late st Contact Info) Description 04/08/2024 2:00 PM EDT Office Visit Orthopaedics, [place] [place] [address] Davie Arellano PA-C [address] [place], [place] [phone] Primary osteoarthritis of left knee* Allergies Active [...] Tartrate 25 MG Oral Tablet (Lopressor)Indicatio ns:Old [place] (myocardial infarction) TAKE ONE-HALF (1/2) TABLET IN [...] 130/80 07/07/2019 Osteoarthritis of thumb 06/08/2017 Old [place] (myocardial infarction) 06/08/2017 Coronary artery disease invo lving tetlin coronary artery of tetlin heart without angina pectoris 01/06/2017 Dyslipidemia, goal [...] 3:05 PM EDT Nursing Notes: Naila Reyes, [facility] 04/08/24 1357 Signed Chief Complaint Patient presents [...] 06/30/2024 9:00 AM EDT Office Visit Dermatology [facility] [address] [facility] [place] [address] Carmen Mann MD [address] [facility] [place] [address] 07/11/2024 1:30 PM EDT Office Visit Orthopaedics, [address] [place] [address] Davie Arellano PA-C [address] [place] [address] 09/13/2024 8:20 AM EST Office Visit [facility] [address] [phone] Irineo Davila MD [address] [place] [facility] [place] [address] 10/06/2024 10:45 AM EST Imaging Radiology [address], [place] [address] [facility] [place] [address] Health Maintenance Due Date Last Done Comments [...] Left documented in this encounter Care Teams Urgent Care Physician Relationship Specialty Start Date End Date Irineo Davila MD [address] [place] [address] PCP - General 11/21/1997 documented as of this encounter
--- OUTSIDE RECORDS SUMMARY | 2024-09-20 00:11 | External Medical Summary | Summary of Care ---
Author Name Unknown Organization [facility] Address [address] [place] [address] Phone [phone] Care Team Providers Care Freelance Writer Name Role Phone Irineo Davila MD Primary Care Provider [phone] Reason for Visit * Reason Comments Acute Patient is here toda y due to an ongoing cough for about a week Patients states he was running a low grade temperature for about three days with body aches at times. Patient states the last few days the cough has been the worst. Patient has been taking OTC cold medication with little relief. Encounter Details Date Type Department Care Team (Late st Contact Info) Description 08/16/2024 11:00 AM EST Office Visit [facility] [address] [facility] [place] [phone] Irineo Davila MD [address] [facility] [place] [address] Bronchitis, complicated* Allergies Active Allergy Reactions Criticality Noted Date Comments Atorvastatin 06/08/2017 Saccharin Nausea/vomiting 07/15/2016 documented as of this encounter (statuses as of 08/16/2024) Medications ASPIRIN TABS 81 MG ORIndications:Fam hx-cardiovas dis NEC 34 5 06/17/20 00 Active Diclofenac Sodium 1 % gelIndications:Os teoarthritis of thumb, right Place 2 g topically on the skin 4 times a day as needed for Pain. 3 Tube 3 06/08/20 17 Active Loperamide HCl (IMODIUM A-D) 2 MG TabletIndications :Diarrhea, unspecified type Take 1 Tab by mouth [...] 911. 25 Tab 11 06/02/20 18 Active Fluticasone Propionate 50 MCG/ACT Nasal Suspension (FLONASE)Indicati ons:Chronic rhinitis Administer 2 Sprays into each nostril daily. 16 g 11 07/10/20 20 Active Rosuvastatin Calcium 40 MG Oral Tablet (Crestor) 04/24/20 23 Active Ketoconazole 2 % External Shampoo (Nizoral) Apply topically to affected area every 3 days. Use as shampoo at least 3 times weekly, lather, wait 5 min, then rinse 120 mL 5 06/18/20 23 Active Fluocinonide 0.05 % External Solution Apply to scalp nightly as needed for itching 60 mL 3 06/18/20 23 Active Lisinopril 5 MG Oral Tablet (Prinivil)Indicat ions:RCA occlusion (HCC),S/P arterial stent TAKE 1 TABLET IN THE MORNING 90 Tablet 3 12/26/19 24 Active Metoprolol Tartrate 25 MG Oral Tablet (Lopressor)Indica tions:Old [place] (myocardial infarction) TAKE ONE-HALF (1/2) TABLET IN THE MORNING AND ONE-HALF (1/2) TABLET BEFORE BEDTIME 90 Tablet 3 02/08/20 24 Active Ketoconazole 2 % External Shampoo (Nizoral)Indicati ons:Seborrheic dermatitis of scalp Apply topically to affected area every 3 days. Massage into scalp, rinse out after 5-10 minutes. Completed 3x weekly until resolved, then once weekly as maintenance. 120 mL 11 06/28/20 24 Active Cetirizine HCl 10 MG Oral Tablet (ZyrTEC) TAKE 1 TABLET IN THE MORNING 90 Tablet 1 08/12/20 24 Active Azithromycin 250 MG Oral Tablet (Zithromax Z-Dmitriy)Indications :Bronchitis, complicated Take two tablets by mouth on first day, then 1 tablet daily until gone 6 Tablet 08/16/20 24 Active predniSONE 20 MG Oral Tablet (Deltasone)Indica tions:Bronchitis, complicated Take 2 Tablets by mouth in the morning for 5 days. 10 Tablet 08/16/20 24 024 Active Zoster Vac Recomb Adjuvanted 50 MCG/0.5ML Intramuscular Suspension Reconstituted (SHINGRIX)Indicat ions:Need for shingles vaccine Inject 0.5 mL into a large muscle now and repeat dose in 60 to 180 days 1 Each 1 07/10/20 20 024 Discontin ued(Medic ation List Clean Up) Rosuvastatin Calcium 20 MG Oral Tablet (Crestor)Indicati ons:Dyslipidemia, goal LDL below 100 One daily in PM 09/10/20 22 024 Discontin ued(Medic ation List Clean Up) methylPREDNISolon e 4 MG Oral Tablet Therapy Pack (Medrol Dosepack) follow package directions 21 Tablet 02/20/20 23 024 Discontin ued(Medic ation List Clean Up) documented as of this encounter (statuses as of 08/16/2024) Active Problems Problem Noted Date Diagnosed Date [...] 130/80 07/07/2019 Osteoarthritis of thumb 06/08/2017 Old [place] (myocardial infarction) 06/08/2017 Coronary artery disease invo lving [place] coronary artery of [place] heart without angina pectoris 01/06/2017 Dyslipidemia, goal LDL below 100 08/22/2013 documented as of this encounter (statuses as of 08/16/2024) Resolved Problems Problem Noted Date Diagnosed Date [...] as of this encounter (statuses as of 08/16/2024) Immunizations Name Administration Dates Next Due COVID-19 mRNA, LNP-s, No Pre serve, 2-Dose Series ([email or web address]) 09/03/2021,12/19/2020,11/28/2020 Pneumococcal Conjugate Vacc, 13 Valent (Prevnar) [...] Sign Reading Time Taken Comments Blood Pressure 130/77 08/16/2024 11:00 AM EST Pulse 64 08/16/2024 11:00 AM EST Temperature 36.4 C (97.6 F) 08/16/2024 11:[address] Respiratory Rate 16 08/16/2024 11:00 AM EST Oxygen Saturation 97% 08/16/2024 11:00 AM EST Inhaled Oxygen Concentration - - Weight 108 kg (238 lb 3.2 oz) 08/16/2024 11:00 A M EST Height 175.3 cm (5' 9") 08/16/2024 11:00 AM EST Body Mass Index 35.18 08/16/2024 11:00 AM EST documented in this encounter Progress Notes * Irineo Davila MD - 08/16/2024 11:35 AM EST Subjective: Rom Robertson is a 74 year old male. Chief Complaint Patient presents with Acute Patient is here today due to an ongoing cough for about a week Patients states he was running a low grade temperature for about three days with body aches attimes. Patient states the last few days the cough has been the worst. Patient has been taking OTC cold medication with little relief. HPI: 74-year-old with a known history of pre diabetes as well as coronary artery disease is seen today because of primarily cough. This all began the evening of 5 days ago. Early on he may have had low-grade fever. Never had sore throat. Basically it has been a cough which at times is severe. Does not have significant head congestion or rhinorrhea except some rhinorrhea after coughing spell. 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 3 Tube 3 Loperamide HCl (IMODIUM A-D) 2 MG Tablet Take 1 Tab by mouth daily as needed for Diarrhea. Then onetablet after each loose BM, no more than 4 tablets per day for up to two days 18 Tab 0 nitroglycerin (NITROSTAT) 0.[address] 1 Tab under the tongue as needed for Pain, Chest. May repeat 3 times. If chest pain continues, call 911. 25 Tab 11 Fluticasone Propionate 50 MCG/ACT Nasal Suspension (FLONASE) Administer 2 Sprays into each nostril daily. 16 g 11 Rosuvastatin Calcium 40 MG Oral Tablet (Crestor) Ketoconazole 2 % External Shampoo (Nizoral) Apply topically to affected area every 3 days. Use as shampoo at least 3 times weekly, lather, wait 5 min, then rinse 120 mL 5 Fluocinonide 0.05 % External Solution Apply to scalp nightly as needed for itching 60 mL 3 Lisinopril 5 MG Oral Tablet (Prinivil) TAKE 1 TABLET IN THE MORNING 90 Tablet 3 Metoprolol Tartrate 25 MG Oral Tablet (Lopressor) TAKE ONE-HALF (1/2) TABLET IN THE MORNING AND ONE-HALF (1/2) TABLET BEFORE BEDTIME 90 Tablet 3 Ketoconazole 2 % External Shampoo (Nizoral) Apply topically to affected area every 3 days. Massage into scalp, rinse out after 5-10 minutes. Completed 3x weekly until resolved, then once weekly as maintenance. 120 mL 11 Cetirizine HCl 10 MG Oral Tablet (ZyrTEC) TAKE 1 TABLET IN THE MORNING 90 Tablet 1 No current facility-administered medications for this visit. Review of patient's allergies indicates: Allergen Reactions Lipitor [Atorvastatin] Saccharin Nausea/vomiting Objective: BP 130/77 (BP Site: Right Arm, BP Position: Sitting, BP Cuff Size: Regular) | Pulse 64 | Temp 97.6 F (36.4 C) (Tympanic) | Resp 16 | Ht 5' 9" (1.753 m) | Wt 238 lb 3.2 oz (108 kg) | SpO2 97% | BMI 35.18 kg/m | BSA 2.29 m Physical Exam: CONST: alert, pleasant, no acute distress HEAD: normocephalic, atraumatic NECK: supple, soft, no adenopathy EARS: canals normal, TMs normal Eyes - PERRLA, EOM'I OROPHARYNX: clear, no swelling or erythema, moist CV: regular rate and rhythm, no murmur CHEST: clear to auscultation bilaterally, no rales or wheezing. Does have some harsh breath sounds at both bases ABD: soft, non tender, non distended, no masses or hepatosplenomegaly ASSESSMENT/PLAN: Bronchitis, complicated (Primary)-this all could be part of a viral illness and continue as a viralbronchitis but I think it is worthwhile treating him has a prednisone 20 mg, 2 tabs daily for 5 days. Try to limit simple carbohydrates in diet over the next week Recommend Robitussin DM or similar product as needed for cough. Irineo Davila MD documented in this encounter Nursing Notes * Wendy Fam LPN - 08/16/2024 11:04 AM EST The patient has been properly identified by confirmation of name and date of . Chief Complaint Patient presents with Acute Patient is here today due to an ongoing cough for about a week Patients states he was running a low grade temperature for about three days with body aches attimes. Patient states the last few days the cough has been the worst. Patient has been taking OTC cold medication with little relief. documented in this encounter Plan of Treatment Upcoming Encounters Date Type Department Care Team (Late st Contact Info) Description 09/13/2024 8:20 AM EST Office Visit [facility] [address] [facility] [place] [phone] Irineo Davila MD 226 [facility] [place] [address] 10/06/2024 10:45 AM EST Imaging Radiology [address], [place] 132 [facility] [place] [address] 10/12/2024 10:30 AM EST Office Visit Orthopaedics, [address] [place] [address] Davie Arellano PA-C [address] [place] [address] 06/29/2025 9:15 AM EDT Office Visit Dermatology [facility] [address] [facility] [place] [address] Ike Malik MD [address] [place] [address] Health Maintenance Due Date Last Done Comments [...] as of this encounter Visit Diagnoses Diagnosis Bronchitis, complicated- Primary Bronchitis, not specified as acute or chronic documented in this encounter Care Teams Freelance Writer Relationship Specialty Start Date End Date Irineo Davila MD [address] [place] [address] PCP - General 11/21/1997 documented as of this encounter
--- OUTSIDE RECORDS SUMMARY | 2024-09-20 00:11 | External Medical Summary | Summary of Care ---
Author Name Unknown Organization [facility] Address [address] [facility] [place] [address] Phone [phone] Care Team Providers Care Gravity Meter Observer Name Role Phone Irineo Davila MD Primary Care Provider [phone] Reason for Visit * Reason Comments Follow Up Pt here for curettag e of SCCIS on Right ear. 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 Massage into scalp, rinse out after 5-10 minutes. Completed 3x weekly until resolved, then once weekly as maintenance. 120 mL 11 06/28/2024 Active documented as of this encounter (statuses as of 07/12/2024) Active Problems Problem Noted Date Diagnosed Date 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 (L cheek. Dr. Jerez, years ago) Prediabetes 07/23/2020 Overview: Per Prediabetes protocol HTN, goal below 130/80 07/07/2019 Osteoarthritis of thumb 06/08/2017 Old [place] (myocardial infarction) 06/08/2017 Coronary artery disease invo lving [place]' coronary artery of [place]' heart without angina pectoris 01/06/2017 Dyslipidemia, goal LDL below 100 08/22/2013 documented as of this encounter (statuses as of 07/12/2024) Resolved Problems Problem Noted Date Diagnosed Date [...] as of this encounter (statuses as of 07/12/2024) Immunizations Name Administration Dates Next Due COVID-19 [...] Progress Notes * Ike Malik MD - 07/12/2024 11:34 AM EDT SUBJECTIVE: HPI: Rom Robertson is a 74 year old male who presents today for elective curettage of squamous cellcarcinoma in situ. 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 ALLERG Y: Lipitor [atorvastatin] and Saccharin OBJECT MATA: General: Patient is alert and oriented and in no apparent distress. Skin: Problem focused exam reveals: A. Right superior helix - 5mm crusted biopsy site Right dorsal hand - dry gritty erythematous papule ASSESS MENT / PLAN: 1. squamous cell carcinoma in situ -For elective curettage today. -For details refer to Procedure Note below. PROCEDURE NOTE Procedure - Curettage (Malignant Destruction) Curette of the lesion noted above to destroy lesion. The procedure, risks, benefits, alternatives and expected outcomes were discussed with the patient and consent was obtained. Time out called. Patient identified, procedure verified, site identified and verified. Patient and staff present in agreement. Area prepped with alcohol and anesthetized with 0.5% lidocaine with epinephrine at 1:200,000 concentration. Curette of lesion performed. 20% AlCl and bandaging applied. Patient instructed in routine post-op care. Size of lesion: 5mm Size of wound after currettage: 13mm -Acetominophen 500mg PO every 6 hours as needed for pain. -Verbal and written wound care instructions provided. -Pt tolerated the procedure well and was discharged to home under the care of self. 2. Actinic keratosis -The diagnosis and malignant potential of the lesion was explained. Treatment options were reviewedincluding cryotherapy, topical medications, and observation. All questions were addressed. Procedure - Cryotherapy (Premalignant Destruction) -The patient would like to proceed with cryosurgery;Cryosurgery explained to the patient, consent obtained, patient, site and procedure verified, and then cryotherapy was performed with Liquid Nitrogen via cryo spray unit to 1 lesions. Location noted in physical exam. Post op course explained. -Discussed that if any of these lesions fail to completely resolve after treatment patient should call me for re-evaluation -Follow-up: as scheduled The patient was encouraged to contact me with any further questions or concerns. Ike Malik MD 07/12/2024 11:36 AM documented in this encounter Nursing Notes * Tea Lynch CMA - 07/12/2024 11:18 AM EDT Chief Complaint Patient presents with Follow Up Pt here for curettage of SCCIS on Right ear. documented in this encounter Plan of Treatment Upcoming Encounters Date Type Department Care Team (Late st Contact Info) Description 09/13/2024 8:20 AM EST Office Visit [address] [phone] Irineo Davila MD [address] [place] [address] 10/06/2024 10:45 AM EST Imaging Radiology [address], [place] [address] [place] [address] 10/12/2024 10:30 AM EST Office Visit Orthopaedics, [address], [place] [address] [place] [address] LoudensDavie jean PA-C [address] [place] [address] 06/29/2025 9:15 AM EDT Office Visit Dermatology [facility] 200 [facility] [place] [address] Ike Malik MD [address] [facility] [address] Health Maintenance Due Date Last Done Comments [...] as of this encounter Visit Diagnoses Diagnosis 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
[2024-09-20] MEDS: ASPIRIN CHEW 324 MG PO STA (00:30)
--- NOTE | 2024-09-20 01:33 | XRay Report ---
Exam(s): XR CXR 1 VIEW EXAM: XR Chest, 1 View CLINICAL HISTORY: Reason for exam: stroke like symptoms. TECHNIQUE: Frontal view of the chest. COMPARISON: Chest radiograph on 07/09/2016 FINDINGS: Hardware: None. Lungs/pleura: Normal. No focal consolidation. No pleural effusion or pneumothorax. Heart/mediastinum: Normal. No cardiomegaly. Soft tissues: Unremarkable. Bones: No acute fracture. Upper abdomen: Normal. IMPRESSION: No acute disease identified. Electronically signed by: Paulie Mejia M.D. 09/20/24 01:31 AM
--- NOTE | 2024-09-20 06:08 | History & Physical Report ---
Date of Service September 20, 2024 Assessment & Plan (1) Stroke-like symptom: Plan: 74-year-old male with past medical history significant for inferior ST elevated MO in 2016 status post stent, history of hypertension, history of frequent PVCs, history of dyslipidemia, history of osteoarthritis, history of prediabetes, comes with strokelike symptoms. Around 7 PM yesterday when he was watching TV he could not close his right eye and also started feeling numbness in the right side of the face. He was having loss of taste since couple of days. Can raise his Brows okay. No numbness on the forehead. No difficulty swallowing. Speech was okay. No headache. No dizziness. Vision is okay. No runny nose or sore throat. No cough. No chest pain or shortness of breath no nausea. No abdominal pain. Normal bowel and bladder movements. No weakness or numbness anywhere else. Currently resting comfortably and hemodynamically stable. Strokelike symptom Numbness in the right side of face and forehead is spared Slight right facial droop CT head, CTA head no acute findings CT head shows chronic microvascular ischemic changes CTA neck no acute findings but shows moderate to severe canal stenosis at C3-C4 Continue with home aspirin and statin Will we will do stroke protocol with MRI head, echo, PT OT evaluation Follow lipid profile, HbA1c levels Neurochecks patient complains of questionable swelling below right ear. Consult neurology in a.m. for further recommendations History of CAD status post stent On aspirin statin beta-mariann History of prediabetes Follow HbA1c levels History of hypertension Continue metoprolol Hold lisinopril for permissive hypertension Will monitor Dyslipidemia On statin Severe C3-C4 canal stenosis needs followup DVT prophylaxis SCDs for now Disposition Telemetry Full code. History of Present Illness Chief Complaint: Strokelike symptoms Primary Care Provider: Irineo Davila MD 74-year-old male with past medical history significant for inferior ST elevated MO in 2016 status post stent, history of hypertension, history of frequent PVCs, history of dyslipidemia, history of osteoarthritis, history of prediabetes, comes with strokelike symptoms. Around 7 PM yesterday when he was watching TV he could not close his right eye and also started feeling numbness in the right side of the face. He was having loss of taste since couple of days. Can raise his Brows okay. No numbness on the forehead. No difficulty swallowing. Speech was okay. No headache. No dizziness. Vision is okay. No runny nose or sore throat. No cough. No chest pain or shortness of breath no nausea. No abdominal pain. Normal bowel and bladder movements. No weakness or numbness anywhere else. Currently resting comfortably and hemodynamically stable. Past medical history. As mentioned above. Past surgical history. Drainage of skin abscess on the right shoulder. Colonoscopy. Tonsillectomy. Remove elbow bursa. Social history. . Quit smoking 2015. Smoked 1 pack a day for 30 years. 5 beers in a week per epic. No drug use Family history. Brother has arrhythmia. Father had MO. Maternal grandmother had diabetes. Allergies Allergy/AdvReac Type Severity Reaction Status Date / Time No Known Allergies Allergy Unverified 12/31/23 13:19 Home Medications Medication Instructions Recorded Confirmed Type aspirin 81 mg tablet,delayed 81 mg PO DAILY 09/20/24 09/20/24 History release cetirizine 10 mg tablet 10 mg PO DAILY 09/20/24 09/20/24 History lisinopril 5 mg tablet 5 mg PO DAILY 09/20/24 09/20/24 History metoprolol tartrate 25 mg tablet 12.5 mg PO BID 09/20/24 09/20/24 History rosuvastatin 40 mg tablet 40 mg PO DAILY 09/20/24 09/20/24 History Past Med/Surg History Problem List (Updated 09/20/24 @ 06:05 by Raymond Gill MD) Stroke-like symptom Numbness and tingling of right face (Acute) Coronary artery disease Tobacco abuse (Chronic) Surgical History (Updated 05/08/20 @ 11:11 by ROSAURA Berger) History of tonsillectomy Status post coronary angiogram Social History (Updated 05/08/20 @ 11:12 by ROSAURA Berger) Smoking Status: Former smoker Tobacco Type: Cigarettes Hx Alcohol Use: Yes Alcohol type: beer and hard liquor Hx Substance Use: No Preferred Language: Bulgarian Communication Ability: Effective Beliefs That Will Affect Care: None marital status: Current Living Situation: Spouse Current Living Situation Comment: House, [address], with (Maria Victoria) and two cats (Sherley and Macario) current occupational status: unemployed Other Information That Helps Us Care for You: No Feels Safe at Home: Yes Safety Concerns: Feels Safe At This Time Assistive Devices Comment: Glasses Review of Systems Review of Systems: All systems reviewed & are unremarkable except as noted in HPI & below Physical Exam Physical Exam: General- Not in distress Head- atraumatic Eyes- PERRL, ENT- oropharynx clear Neck- supple, no JVD. Lungs- clear to auscultation no wheezing or crackles Heart- regular rhythm; no murmur, no gallop. Abdomen- normal bowel sounds, soft, nontender, no distension. Extremities- no pretibial edema, no erythema seen. Neuro- alert, oriented ; PERRL, slight right facial droop, tounge midline, ; no dysarthria; motor 5/5 bilaterally; Mild decrease sensations in right side of face, No pronator drift, position sense intact Results & Data Results & Data Vital Signs (Past 12 Hours) Vital Signs Temp Pulse Pulse Resp BP BP Pulse Ox 09/20/24 05:07 56 L 09/20/24 05:03 56 L 17 95 09/20/24 05:00 116/65 09/20/24 04:54 53 L 16 95 09/20/24 04:32 55 L 15 97 09/20/24 04:17 62 18 96 09/20/24 04:06 128/72 09/20/24 04:06 128/72 09/20/24 03:53 59 L 18 95 09/20/24 03:38 60 15 94 09/20/24 03:20 58 L 15 94 09/20/24 03:05 59 L 15 95 09/20/24 03:00 169/97 H 09/20/24 03:00 169/97 H 09/20/24 03:00 169/97 H 09/20/24 02:57 58 L 15 95 09/20/24 02:44 57 L 17 95 09/20/24 02:30 114/71 09/20/24 02:30 114/71 09/20/24 02:29 59 L 16 93 09/20/24 02:03 58 L 16 94 09/20/24 02:00 127/68 09/20/24 01:42 59 L 16 96 09/20/24 01:36 63 18 97 09/20/24 01:31 135/63 09/20/24 01:31 135/63 09/20/24 01:19 57 L 09/20/24 01:12 69 20 94 09/20/24 01:04 152/77 H 09/20/24 00:48 58 L 15 95 09/20/24 00:33 59 L 20 97 09/20/24 00:32 144/70 H 09/20/24 00:32 144/70 H 09/20/24 00:32 58 L 16 144/70 H 96 09/20/24 00:18 58 L 19 95 09/20/24 00:06 67 18 95 09/20/24 00:00 131/71 09/19/24 23:51 60 21 09/19/24 23:42 61 19 09/19/24 23:00 68 16 96 09/19/24 23:00 146/88 H 09/19/24 23:00 146/88 H 09/19/24 23:00 146/88 H 09/19/24 22:30 62 16 128/82 96 09/19/24 21:30 61 19 123/67 96 09/19/24 21:21 64 09/19/24 21:20 64 16 128/63 96 09/19/24 20:57 36.8 C 67 20 148/70 H 95 O2 Del Method 09/20/24 05:07 09/20/24 05:03 09/20/24 05:00 09/20/24 04:54 09/20/24 04:32 09/20/24 04:17 09/20/24 04:06 09/20/24 04:06 09/20/24 03:53 09/20/24 03:38 09/20/24 03:20 09/20/24 03:05 09/20/24 03:00 09/20/24 03:00 09/20/24 03:00 09/20/24 02:57 09/20/24 02:44 09/20/24 02:30 09/20/24 02:30 09/20/24 02:29 09/20/24 02:03 09/20/24 02:00 09/20/24 01:42 09/20/24 01:36 09/20/24 01:31 09/20/24 01:31 09/20/24 01:19 09/20/24 01:12 09/20/24 01:04 09/20/24 00:48 09/20/24 00:33 09/20/24 00:32 09/20/24 00:32 09/20/24 00:32 Room Air 09/20/24 00:18 09/20/24 00:06 09/20/24 00:00 09/19/24 23:51 09/19/24 23:42 09/19/24 23:00 09/19/24 23:00 09/19/24 23:00 09/19/24 23:00 09/19/24 22:30 09/19/24 21:30 09/19/24 21:21 09/19/24 21:20 Room Air 09/19/24 20:57 Room Air Diagnostic Findings Laboratory Results WBC 11.31 K/ul (4.8-10.8) H 09/19/24 21:10 RBC 4.41 M/uL (4.70-6.10) L 09/19/24 21:10 Hgb 13.9 g/dl (14.0-18.0) L 09/19/24 21:10 Hct 41.2 % (42.0-52.0) L 09/19/24 21:10 MCV 93.4 fL (80.0-100.0) 09/19/24 21:10 MCH 31.5 pg (25.0-34.0) 09/19/24 21:10 MCHC 33.7 g/dL (32.0-36.0) 09/19/24 21:10 RDW Std Deviation 46.1 fL (36.4-46.3) 09/19/24 21:10 RDW Coeff of Shira 13.4 % (11.5-14.5) 09/19/24 21:10 Plt Count 252 K/uL (130-400) 09/19/24 21:10 MPV 11.0 fL (9.4-12.4) 09/19/24 21:10 Immature Gran % (Auto) 0.8 % 09/19/24 21:10 Neut % (Auto) 66.4 % 09/19/24 21:10 Lymph % (Auto) 22.4 % 09/19/24 21:10 Hudson % (Auto) 8.0 % 09/19/24 21:10 Eos % (Auto) 2.0 % 09/19/24 21:10 Baso % (Auto) 0.4 % 09/19/24 21:10 Neut # (Auto) 7.51 K/uL (1.40-6.50) H 09/19/24 21:10 Lymph # (Auto) 2.53 K/uL (1.20-3.40) 09/19/24 21:10 Hudson # (Auto) 0.91 K/uL (0.11-0.59) H 09/19/24 21:10 Eos # (Auto) 0.23 K/uL (0.00-0.50) 09/19/24 21:10 Baso # (Auto) 0.04 K/uL (0.00-0.20) 09/19/24 21:10 Immature Gran # (Auto) 0.09 K/uL (0.01-0.20) 09/19/24 21:10 PT 10.6 Seconds (9.0-12.0) 09/19/24 21:10 INR 1.0 (0.9-1.1) 09/19/24 21:10 APTT 27 Seconds (21-31) 09/19/24 21:10 PTT Ratio 1.0 09/19/24 21:10 Sodium 139 mmol/L (136-145) 09/19/24 21:10 Potassium 3.8 mmol/L (3.5-5.1) 09/19/24 21:10 Chloride 105 mmol/L (98-107) 09/19/24 21:10 Carbon Dioxide 27 mmol/L (21-32) 09/19/24 21:10 Anion Gap 7 (3-11) 09/19/24 21:10 BUN 20 mg/dl (6-23) 09/19/24 21:10 Creatinine 0.93 mg/dl (0.6-1.4) 09/19/24 21:10 Est Cr Clr Drug Dosing 84.8 ml/min 09/19/24 21:10 eGFR 86.16 09/19/24 21:10 BUN/Creatinine Ratio 21.5 (10-20) H 09/19/24 21:10 Glucose 115 mg/dl (70-99(Fasting)) H 09/19/24 21:10 Calcium 9.5 mg/dl (8.6-10.3) 09/19/24 21:10 Magnesium 2.0 mg/dl (1.7-2.4) 09/19/24 21:10 Total Bilirubin 0.3 mg/dl (0.2-1.0) 09/19/24 21:10 AST 19 U/L (13-39) 09/19/24 21:10 ALT 14 U/L (7-52) 09/19/24 21:10 Alkaline Phosphatase 89 U/L (34-104) 09/19/24 21:10 Troponin I High Sens 8.6 pg/ml (0-20) 09/19/24 21:10 Total Protein 7.1 gm/dl (6.0-8.3) 09/19/24 21:10 Albumin 4.1 gm/dl (3.4-5.0) 09/19/24 21:10 Globulin 3.0 gm/dl (2.5-4.0) 09/19/24 21:10 Albumin/Globulin Ratio 1.4 (0.9-2) 09/19/24 21:10 Lyme Disease Screen Negative (Negative) 09/19/24 21:[address] 09/19/24 21:47 Exam(s): CT HEAD Without Contrast EXAM: CT Head Without Intravenous Contrast CLINICAL HISTORY: Reason for exam: Right facial numbness. TECHNIQUE: Axial computed tomography images of the head/brain without intravenous contrast. CTDI is 64 mGy and DLP is 1098 mGy-cm. Automated exposure control was utilized for the study. A dose lowering technique was utilized adhering to the principles of ALARA. COMPARISON: No relevant prior studies available. FINDINGS: Brain: No intracranial hemorrhage, mass-effect, or cerebral edema. Atrophy and chronic microvascular ischemic changes. Ventricles: Unremarkable. Bones/joints: Unremarkable. No fracture. Soft tissues: Unremarkable. Sinuses: No acute sinusitis. Mastoid air cells: Unremarkable as visualized. IMPRESSION: 1. No acute intracranial abnormality. 2. Atrophy and chronic microvascular ischemic changes. Electronically signed by: Harshil Laws MD 09/19/24 23:53 PM Head CTA 09/19/24 21:47 Exam(s): CTA HEAD With Contrast IV Amt: 117 ml optiray 320 EXAM: CT Angiography Head With Intravenous Contrast CLINICAL HISTORY: Reason for exam: Right facial numbness. TECHNIQUE: Axial computed tomographic angiography images of the head with intravenous contrast. CTDI is 64 mGy and DLP is 1098 mGy-cm. Automated exposure control was utilized for the study. A dose lowering technique was utilized adhering to the principles of ALARA. MIP reconstructed images were created and reviewed. CONTRAST: Patient received 117 ml optiray 320 of IV contrast COMPARISON: No relevant prior studies available. FINDINGS: Right internal carotid artery: Intracranial segment is patent with no significant stenosis. No aneurysm. Right anterior cerebral artery: No occlusion or significant stenosis. No aneurysm. Right middle cerebral artery: No occlusion or significant stenosis. No aneurysm. Right posterior cerebral artery: No occlusion or significant stenosis. No aneurysm. Right vertebral artery: Unremarkable as visualized. Left internal carotid artery: Intracranial segment is patent with no significant stenosis. No aneurysm. Left anterior cerebral artery: No occlusion or significant stenosis. No aneurysm. Left middle cerebral artery: No occlusion or significant stenosis. No aneurysm. Left posterior cerebral artery: No occlusion or significant stenosis. No aneurysm. Left vertebral artery: Unremarkable as visualized. Basilar artery: No occlusion or significant stenosis. No aneurysm. IMPRESSION: Normal head CTA. Electronically signed by: Harshil Laws MD 09/19/24 23:46 PM Neck CTA 09/19/24 21:47 Exam(s): CTA NECK With Contrast IV Amt: 117 ml optiray 320 EXAM: CT Angiography Neck With Intravenous Contrast CLINICAL HISTORY: Reason for exam: Right facial numbness. TECHNIQUE: Routine carotid CT angiography protocol was performed with intravenous contrast. NASCET criteria using the distal ICAs for comparison were used for evaluation of stenoses. CTDI is 64 mGy and DLP is 1098 mGy-cm. Automated exposure control was utilized for the study. A dose lowering technique was utilized adhering to the principles of ALARA. MIP reconstructed images were created and reviewed. CONTRAST: Patient received 117 ml optiray 320 of IV contrast COMPARISON: None. FINDINGS: VASCULATURE: Right common carotid artery: No occlusion or significant stenosis. No dissection. Right internal carotid artery: Extracranial segment is patent with no occlusion or significant stenosis. No dissection. Right vertebral artery: No occlusion or significant stenosis. No dissection. Left common carotid artery: No occlusion or significant stenosis. No dissection. Left internal carotid artery: Extracranial segment is patent with no occlusion or significant stenosis. No dissection. Left vertebral artery: No occlusion or significant stenosis. No dissection. NECK: Bones/joints: No acute fracture. Moderate to severe canal stenosis at C3-C4. Multilevel high-grade foraminal stenosis. Soft tissues: Unremarkable. Lung apices: Clear. CAROTID STENOSIS REFERENCE USING NASCET CRITERIA: % ICA stenosis = (1 - narrowest ICA diameter/diameter of distal cervical ICA) x 100. Mild - <50% stenosis. Moderate - 50-69% stenosis. Severe - 70-94% stenosis. Near occlusion - 95-99% stenosis. Occluded - 100% stenosis. IMPRESSION: 1. No flow-limiting stenosis. 2. Moderate to severe canal stenosis at C3-4. Electronically signed by: Harshil Laws MD 09/19/24 23:56 PM Chest X-Ray 09/19/24 22:58 Exam(s): XR CXR 1 VIEW EXAM: XR Chest, 1 View CLINICAL HISTORY: Reason for exam: stroke like symptoms. TECHNIQUE: Frontal view of the chest. COMPARISON: Chest radiograph on 07/09/2016 FINDINGS: Hardware: None. Lungs/pleura: Normal. No focal consolidation. No pleural effusion or pneumothorax. Heart/mediastinum: Normal. No cardiomegaly. Soft tissues: Unremarkable. Bones: No acute fracture. Upper abdomen: Normal. IMPRESSION: No acute disease identified. Electronically signed by: Paulie Mejia M.D. 09/20/24 01:31 AM ECG Additional Comments: ECG. Normal sinus rhythm with rate of 66. No acute ST changes seen. Code Status & VTE Plan VTE Prophylaxis Plan VTE Prophylaxis will be ordered: Yes
--- NOTE | 2024-09-20 08:58 | Electrocardiogram Report ---
Test Reason : Blood Pressure : */* mmHG Vent. Rate : 66 BPM Atrial Rate : 66 BPM P-R Int : 174 ms QRS Dur : 82 ms QT Int : 382 ms P-R-T Axes : 38 60 31 degrees QTcB Int : 400 ms Normal sinus rhythm Normal ECG When compared with ECG of 09-Jul-2016 09:12, QT has shortened Confirmed by Hilario Martino ([id number]) on 09/20/2024 8:58:11 AM Referred By: REFERRED SELF Confirmed By: Hilario Martino
[2024-09-20] MEDS ORDERED: NITROGLYCERIN SL 0.4 MG/TAB TAB SL PRN (09:12)
[2024-09-20] MEDS ORDERED: PHARMACIST DISCHARGE MED REC CONSULT PRN (09:12)
[2024-09-20] MEDS ORDERED: ACETAMINOPHEN 325 MG TAB PO PRN (09:12)
[2024-09-20 10:24] LABS: Basophils # (auto) 0.04 K/uL (0.00-0.20); Basophils % (auto) 0.4 %; Eosinophils # (auto) 0.19 K/uL (0.00-0.50); Eosinophils % (auto) 2.1 %; Hematocrit (blood only) 42.4 % (42.0-52.0); Hemoglobin 14.3 g/dl (14.0-18.0); Immature Granulocytes # (auto) 0.05 K/uL (0.01-0.20); Immature Granulocytes % (auto) 0.5 %; Lymphocytes # (auto) 1.77 K/uL (1.20-3.40); Lymphocytes % (auto) 19.3 %; Mean Corpuscular Hemoglobin 31.5 pg (25.0-34.0); Mean Corpuscular Hgb Conc 33.7 g/dL (32.0-36.0); Mean Corpuscular Volume 93.4 fL (80.0-100.0); Mean Platelet Volume 10.8 fL (9.4-12.4); Monocytes # (auto) 0.52 K/uL (0.11-0.59); Monocytes % (auto) 5.7 %; Neutrophils # (auto) 6.59 K/uL (1.40-6.50); Platelet Count 257 K/uL (130-400); RDW Coefficient of Variation 13.3 % (11.5-14.5); RDW Standard Deviation 45.3 fL (36.4-46.3); Red Blood Count 4.54 M/uL (4.70-6.10); White Blood Count 9.16 K/ul (4.8-10.8)
--- NOTE | 2024-09-20 10:32 | Hospitalist Progress Note ---
Date of Service September 20, 2024 Assessment & Plan (1) Stroke-like symptom: Plan: Currently the only deficit he has is right facial numbness, no other motor weakness, awaiting MRI of the brain, neurology consult, continue with empirical aspirin and statin. CTA of the neck did not show any flow-limiting stenosis, there was moderate to severe canal stenosis at the level of C3/C4, CT of the head and CTA of the brain were normal as well. (2) Prediabetes: Plan: Patient is known to be prediabetic, blood sugars are overall stable, I do not recommend even any sliding scale at this point. (3) Hypertension, essential: Plan: Blood pressure is little elevated, however until MRI is completed, follow with stroke protocol with using IV antihypertensives. I feel that we have to hold Lopressor that he was ordered for now. Plan Awaiting MRI of the brain, reviewed by neurology, potential discharge soon either later today or tomorrow depending on findings. Admission and Anticipated Discharge Date Admission Date: September 20, 2024 Subjective Patient is a 74-year-old gentleman with history of coronary artery disease status post PCI, hypertension, PVC, dyslipidemia, prediabetes who was admitted with what transpired as strokelike symptoms. Patient stated that for almost a week he was having problem tasting foods but then since 3 days prior to this visit, he started noticing numbness of the right side of his face, he also felt that he was unable to feel inside his right cheek and also, difficulty closing the right eye. Patient was seen and examined in the emergency room, on examination I did not feel that there is any motor deficit, sensory examination clearly showed that patient had different sensation on the right side of the face, cranial nerves appeared intact to me but on gross observation, I noticed that he is blinking more regularly on the left, not that he is incapable of blinking on the right. He also on examination pointing to where his right parotid gland is but on my examination I did not find any mass. Physical Exam Physical Exam: VITALS: Reviewed. WEIGHT/BMI reviewed. GEN: Healthy appearing, well-developed, NAD. NECK: Supple, with no masses. CV: RRR, no m/r/g. LUNGS: CTAB, no w/r/c. ABD: Soft, NT/ND, NBS, no masses or organomegaly. : N/A SKIN: Warm, well perfused. No skin rashes or abnormal lesions. MSK: No deformities, Normal gait. EXT: No clubbing, cyanosis, or edema. NEURO: No motor deficit, cranial nerves II to XII intact, except for decreased sensation on the right side of his face. Results & Data Results & Data Vital Signs (Past 12 Hours) Vital Signs Pulse Pulse Resp BP BP Pulse Ox O2 Del Method 09/20/24 09:46 81 18 159/106 H 95 Room Air 09/20/24 08:05 68 18 131/78 97 Room Air 09/20/24 06:36 62 16 09/20/24 06:18 64 19 09/20/24 06:00 125/55 L 09/20/24 06:00 125/55 L 09/20/24 05:57 62 16 96 09/20/24 05:30 56 L 14 94 09/20/24 05:07 56 L 09/20/24 05:03 56 L 17 95 09/20/24 05:00 116/65 09/20/24 04:54 53 L 16 95 09/20/24 04:32 55 L 15 97 09/20/24 04:17 62 18 96 09/20/24 04:06 128/72 09/20/24 04:06 128/72 09/20/24 03:53 59 L 18 95 09/20/24 03:38 60 15 94 09/20/24 03:20 58 L 15 94 09/20/24 03:05 59 L 15 95 09/20/24 03:00 169/97 H 09/20/24 03:00 169/97 H 09/20/24 03:00 169/97 H 09/20/24 02:57 58 L 15 95 09/20/24 02:44 57 L 17 95 09/20/24 02:30 114/71 09/20/24 02:30 114/71 09/20/24 02:29 59 L 16 93 09/20/24 02:03 58 L 16 94 09/20/24 02:00 127/68 09/20/24 01:42 59 L 16 96 09/20/24 01:36 63 18 97 09/20/24 01:31 135/63 09/20/24 01:31 135/63 09/20/24 01:19 57 L 09/20/24 01:12 69 20 94 09/20/24 01:04 152/77 H 09/20/24 00:48 58 L 15 95 09/20/24 00:33 59 L 20 97 09/20/24 00:32 144/70 H 09/20/24 00:32 144/70 H 09/20/24 00:32 58 L 16 144/70 H 96 Room Air 09/20/24 00:18 58 L 19 95 09/20/24 00:06 67 18 95 09/20/24 00:00 131/71 09/19/24 23:51 60 21 09/19/24 23:42 61 19 09/19/24 23:00 68 16 96 09/19/24 23:00 146/88 H 09/19/24 23:00 146/88 H 09/19/24 23:00 146/88 H 09/19/24 22:30 62 16 128/82 96 Laboratory Results Laboratory Results - last 24 hr 09/19/24 09/20/24 09/20/24 21:10 10:02 10:03 WBC 11.31 H 9.16 RBC 4.41 L 4.54 L Hgb 13.9 L 14.3 Hct 41.2 L 42.4 MCV 93.4 93.4 MCH 31.5 31.5 MCHC 33.7 33.7 RDW Std Deviation 46.1 45.3 RDW Coeff of Shira 13.4 13.3 Plt Count 252 257 MPV 11.0 10.8 Immature Gran % (Auto) 0.8 0.5 Neut % (Auto) 66.4 72.0 Lymph % (Auto) 22.4 19.3 Hubbard % (Auto) 8.0 5.7 Eos % (Auto) 2.0 2.1 Baso % (Auto) 0.4 0.4 Neut # (Auto) 7.51 H 6.59 H Lymph # (Auto) 2.53 1.77 Hubbard # (Auto) 0.91 H 0.52 Eos # (Auto) 0.23 0.19 Baso # (Auto) 0.04 0.04 Immature Gran # (Auto) 0.09 0.05 PT 10.6 INR 1.0 APTT 27 PTT Ratio 1.0 Sodium 139 Pending Potassium 3.8 Pending Chloride 105 Pending Carbon Dioxide 27 Pending Anion Gap 7 Pending BUN 20 Pending Creatinine 0.93 Pending Est Cr Clr Drug Dosing 84.8 Pending eGFR 86.16 Pending BUN/Creatinine Ratio 21.5 H Pending Glucose 115 H Pending Estimat Average Glucose Pending Hemoglobin A1c Pending Calcium 9.5 Pending Magnesium 2.0 Pending Total Bilirubin 0.3 AST 19 ALT 14 Alkaline Phosphatase 89 Troponin I High Sens 8.6 Total Protein 7.1 Albumin 4.1 Globulin 3.0 Albumin/Globulin Ratio 1.4 Triglycerides Pending Cholesterol Pending VLDL Cholesterol, Calc Pending HDL Cholesterol Pending Cholesterol/HDL Ratio Pending Lyme Disease Screen Negative Diagnostic Findings Head CT 09/19/24 21:47 Exam(s): CT HEAD Without Contrast EXAM: CT Head Without Intravenous Contrast CLINICAL HISTORY: Reason for exam: Right facial numbness. TECHNIQUE: Axial computed tomography images of the head/brain without intravenous contrast. CTDI is 64 mGy and DLP is 1098 mGy-cm. Automated exposure control was utilized for the study. A dose lowering technique was utilized adhering to the principles of ALARA. COMPARISON: No relevant prior studies available. FINDINGS: Brain: No intracranial hemorrhage, mass-effect, or cerebral edema. Atrophy and chronic microvascular ischemic changes. Ventricles: Unremarkable. Bones/joints: Unremarkable. No fracture. Soft tissues: Unremarkable. Sinuses: No acute sinusitis. Mastoid air cells: Unremarkable as visualized. IMPRESSION: 1. No acute intracranial abnormality. 2. Atrophy and chronic microvascular ischemic changes. Electronically signed by: Harshil Laws MD 09/19/24 23:53 PM Head CTA 09/19/24 21:47 Exam(s): CTA HEAD With Contrast IV Amt: 117 ml optiray 320 EXAM: CT Angiography Head With Intravenous Contrast CLINICAL HISTORY: Reason for exam: Right facial numbness. TECHNIQUE: Axial computed tomographic angiography images of the head with intravenous contrast. CTDI is 64 mGy and DLP is 1098 mGy-cm. Automated exposure control was utilized for the study. A dose lowering technique was utilized adhering to the principles of ALARA. MIP reconstructed images were created and reviewed. CONTRAST: Patient received 117 ml optiray 320 of IV contrast COMPARISON: No relevant prior studies available. FINDINGS: Right internal carotid artery: Intracranial segment is patent with no significant stenosis. No aneurysm. Right anterior cerebral artery: No occlusion or significant stenosis. No aneurysm. Right middle cerebral artery: No occlusion or significant stenosis. No aneurysm. Right posterior cerebral artery: No occlusion or significant stenosis. No aneurysm. Right vertebral artery: Unremarkable as visualized. Left internal carotid artery: Intracranial segment is patent with no significant stenosis. No aneurysm. Left anterior cerebral artery: No occlusion or significant stenosis. No aneurysm. Left middle cerebral artery: No occlusion or significant stenosis. No aneurysm. Left posterior cerebral artery: No occlusion or significant stenosis. No aneurysm. Left vertebral artery: Unremarkable as visualized. Basilar artery: No occlusion or significant stenosis. No aneurysm. IMPRESSION: Normal head CTA. Electronically signed by: Harshil Laws MD 09/19/24 23:46 PM Neck CTA 09/19/24 21:47 Exam(s): CTA NECK With Contrast IV Amt: 117 ml optiray 320 EXAM: CT Angiography Neck With Intravenous Contrast CLINICAL HISTORY: Reason for exam: Right facial numbness. TECHNIQUE: Routine carotid CT angiography protocol was performed with intravenous contrast. NASCET criteria using the distal ICAs for comparison were used for evaluation of stenoses. CTDI is 64 mGy and DLP is 1098 mGy-cm. Automated exposure control was utilized for the study. A dose lowering technique was utilized adhering to the principles of ALARA. MIP reconstructed images were created and reviewed. CONTRAST: Patient received 117 ml optiray 320 of IV contrast COMPARISON: None. FINDINGS: VASCULATURE: Right common carotid artery: No occlusion or significant stenosis. No dissection. Right internal carotid artery: Extracranial segment is patent with no occlusion or significant stenosis. No dissection. Right vertebral artery: No occlusion or significant stenosis. No dissection. Left common carotid artery: No occlusion or significant stenosis. No dissection. Left internal carotid artery: Extracranial segment is patent with no occlusion or significant stenosis. No dissection. Left vertebral artery: No occlusion or significant stenosis. No dissection. NECK: Bones/joints: No acute fracture. Moderate to severe canal stenosis at C3-C4. Multilevel high-grade foraminal stenosis. Soft tissues: Unremarkable. Lung apices: Clear. CAROTID STENOSIS REFERENCE USING NASCET CRITERIA: % ICA stenosis = (1 - narrowest ICA diameter/diameter of distal cervical ICA) x 100. Mild - <50% stenosis. Moderate - 50-69% stenosis. Severe - 70-94% stenosis. Near occlusion - 95-99% stenosis. Occluded - 100% stenosis. IMPRESSION: 1. No flow-limiting stenosis. 2. Moderate to severe canal stenosis at C3-4. Electronically signed by: Harshil Laws MD 09/19/24 23:56 PM Chest X-Ray 09/19/24 22:58 Exam(s): XR CXR 1 VIEW EXAM: XR Chest, 1 View CLINICAL HISTORY: Reason for exam: stroke like symptoms. TECHNIQUE: Frontal view of the chest. COMPARISON: Chest radiograph on 07/09/2016 FINDINGS: Hardware: None. Lungs/pleura: Normal. No focal consolidation. No pleural effusion or pneumothorax. Heart/mediastinum: Normal. No cardiomegaly. Soft tissues: Unremarkable. Bones: No acute fracture. Upper abdomen: Normal. IMPRESSION: No acute disease identified. Electronically signed by: Paulie Mejia M.D. 09/20/24 01:31 AM Medications Administered Current Inpatient Medications Acetaminophen (Acetaminophen 325 Mg Tab) 650 mg PO Q4H PRN PRN Reason: Pain or Fever Stop: 10/20/24 09:11 Aspirin (Aspirin 81 Mg Ectab) 81 mg PO DAILY [facility] Stop: 10/20/24 09:11 Cetirizine HCl (Cetirizine Hcl 10 Mg Tablet) 10 mg PO DAILY [facility] Stop: 10/20/24 09:11 Sodium Chloride (Nss) 1,000 mls @ 80 mls/hr IV .[id number] [facility] Stop: 09/20/24 21:41 Metoprolol Tartrate (Metoprolol Tartrate 25 Mg Tab) 12.5 mg PO BID [facility] Stop: 10/20/24 09:11 Miscellaneous Information (Pharmacist Discharge Med Rec Consult) 1 each N/A UD PRN PRN Reason: Consult Stop: 10/20/24 09:11 Nitroglycerin (Nitroglycerin Sl 0.4 Mg/Tab Tab) 0.4 mg SL Q5M PRN PRN Reason: Chest Pain Stop: 10/20/24 09:11 Rosuvastatin Calcium (Rosuvastatin Calcium 20 Mg Tab) 40 mg PO DAILY [facility] Stop: 10/20/24 09:11
[2024-09-20 10:45] LABS: BUN Creatinine Ratio 17.6 (10-20); Blood Urea Nitrogen 12 mg/dl (6-23); Calcium 9.1 mg/dl (8.6-10.3); Carbon Dioxide 28 mmol/L (21-32); Chloride 105 mmol/L (98-107); Chol HDL Ratio 3.6 (0-5); Cholesterol 145 mg/dl (0-200); Glucose 96 mg/dl (70-99(Fasting)); HDL Cholesterol 40 mg/dl; LDL Cholesterol Calculated 75 mg/dl; Triglycerides 151 mg/dl (0-150); VLDL Cholesterol 30 mg/dl (0-30)
[2024-09-20] MEDS: METOPROLOL TARTRATE 25 MG TAB PO SCH (10:51)
[2024-09-20] MEDS: ROSUVASTATIN CALCIUM 20 MG TAB PO SCH (10:51)
[2024-09-20] MEDS: ASPIRIN 81 MG ECTAB PO SCH (10:51)
[2024-09-20] MEDS: SODIUM CHLORIDE 0.9% 1,000 ML IV SCH (10:57)
[2024-09-20 10:59] LABS: Estimated Average Glucose 140 mg/dl; Hemoglobin A1C 6.5 % (4.5-5.6)
[2024-09-20] MEDS: GADOBUTROL 65ML VIAL IV ONE (11:41)
--- NOTE | 2024-09-20 11:58 | Magnetic Resonance Report ---
MR brain wo/w con HISTORY: 74 years-old Male stroke like symptoms acute stroke like symptoms COMPARISON: Head CT of same day TECHNIQUE: Multiplanar multisequence MRI of the brain was obtained with and without IV contrast FINDINGS: No restricted diffusion to suggest acute or subacute infarct. Midline structures appear unremarkable. Cerebral venous sinuses and major arterial flow voids appear patent. Skull, orbits and soft tissues are unremarkable. There is no acute intracranial hemorrhage, midline shift, abnormal extra-axial collection, hydrocepha ronny or intra-axial mass. Mild senescent mineralization of the lentiform nuclei. Involutional changes with moderate T2/FLAIR hyperintense foci throughout the white matter. No abnormal enhancement. IMPRESSION: 1. No acute intracranial abnormality, specifically no acute or subacute infarct. 2. Mild involutional changes with moderate chronic microvascular ischemic disease. 3. No abnormal enhancement. ACT 112: Negative or not required by law. The above report was generated using voice recognition software. It may contain grammatical, syntax o r spelling errors. Electronically signed by: Lowell Ghosh M.D. 09/20/2024 11:57 AM
[2024-09-20] MEDS: CETIRIZINE HCL 10 MG TABLET PO SCH (12:46)
--- NOTE | 2024-09-20 13:22 | XCELERA ---
[id number]
--- NOTE | 2024-09-20 13:27 | Neurology Consultation ---
Date of Consultation September 20, 2024 Assessment & Plan (1) Stroke-like symptom: MRI brain reveals no overt evidence of acute ischemic stroke Right facial paresthesia and asymmetry consistent with CN VII LMN palsy -Bonnyman Palsy Recommend steroids/antiviral per primary/hospitalist team Consider dedicated face/soft tissue imaging if concern for parotid mass type lesion Continue frequent neurological assessments Obtain stat CT brain without contrast for any acute neurological decline Continue to monitor/control blood pressure & blood glucose Continue to monitor telemetry closely Continue to monitor renal and hepatic function, keep euvolemic Metabolic workup should include hgbA1c, fasting lipids, homocysteine, TSH, D Dimer, RPR, urinalysis Recommend DAPT for at least 3 weeks, then ASA as monotherapy therafter Recommend high dose statin therapy indefinitely if tolerated Ok from neurology perspective for VTE prophylaxis PT/OT/SLT to eval and treat Recommend eval for STEPHANIE and consider outpatient polysomnography (2) Cervical stenosis of spinal canal: Recommend continued monitoring Telehealth Consultation Telehealth Information Telehealth Information: I performed this visit using a real-time telehealth connection between my location and the patients location ([facility]). After connecting through interactive tele-video, patient was identified by name and date of and/or wristband check.Patient (or authorized healthcare patient service representative) was informed that this was a telemedicine visit and it was being conducted confidentially over secure lines. My office door was closed and no one else was present in the room with me.Patient (or authorized healthcare patient service representative) provided consent to proceed with the visit, expressed an understanding of privacy and security of the telemedicine visit, and gave permission to have a hospital patient service representative in the room in order to assist with the visit and to conduct portions of the visit, as needed. I informed the patient (or authorized healthcare patient service representative) that I reviewed their record and presented the opportunity for them to ask any questions regarding the visit today. The patient agreed to participate. History of Present Illness Reason for Consultation: Stroke like sypmtoms Requesting Physician: Dr. Torres Attending Physician: Jose Torres MD History of Present Illness 74yo male presented with new onset facial paresthesia and asymmetry following several days of changes in taste. noting symmetry appears to be consistent with lower motor neuron etiology. He has undergone emergent stroke imaging including CT brain without contrast, personally reviewed, revealing no overt evidence of hemorrhage. CT angiographic studies of head and neck, also personally reviewed, reveal no overt evidence of large vessel occlusion or significant/flow limiting stenosis. There is notable central canal stenosis at C3-C4. He has undergone an MRI without contrast revealing no overt evidence of acute ischemic stroke. He demonstrates decreased blink rate and incomplete right eye closure. He is able to close eyes if he tries hard. He is able to smile and tongue protrudes midline. I have performed televideo consultation. He is alert & oriented; able to answer all questions appropriately, name objects on televideo monitor, repeat phrases and perform complex/embedded commands without deficit. Neurological exam is non lateralizing/nonfocal in terms of motor strength and coordination. Allergies Allergy/AdvReac Type Severity Reaction Status Date / Time No Known Allergies Allergy Unverified 12/31/23 13:19 Home Medications Medication Instructions Recorded Confirmed Type aspirin 81 mg tablet,delayed 81 mg PO DAILY 09/20/24 09/20/24 History release cetirizine 10 mg tablet 10 mg PO DAILY 09/20/24 09/20/24 History lisinopril 5 mg tablet 5 mg PO DAILY 09/20/24 09/20/24 History metoprolol tartrate 25 mg tablet 12.5 mg PO BID 09/20/24 09/20/24 History rosuvastatin 40 mg tablet 40 mg PO DAILY 09/20/24 09/20/24 History Patient History Surgical History (Updated 05/08/20 @ 11:11 by ROSAURA Berger) History of tonsillectomy Status post coronary angiogram Social History (Updated 05/08/20 @ 11:12 by ROSAURA Berger) Smoking Status: Former smoker Tobacco Type: Cigarettes Hx Alcohol Use: Yes Alcohol type: beer and hard liquor Hx Substance Use: No Preferred Language: Occitan Communication Ability: Effective Beliefs That Will Affect Care: None marital status: Current Living Situation: Spouse Current Living Situation Comment: House, [address], with (Maria Victoria) and two cats (Sherley and Macario) current occupational status: unemployed Other Information That Helps Us Care for You: No Feels Safe at Home: Yes Safety Concerns: Feels Safe At This Time Assistive Devices Comment: Glasses Physical Exam Neurological Examination: Mental Status: Awake and alert. Oriented to person, place, and time. Fluency naming repetition and comprehension appear grossly intact. Affect remains appropriate. CN testing: I: Denies changes in ability to smell II:Reports no changes in visual acuity III/IV/: No evidence of gaze preference, hippus, nystagmus or roving eye movements V: Facial sensation reportedly grossly intact to light touch bilaterally VII: Facial movements appear asymmetric, incomplete right eye closure House [place]ack[place] III VIII: Hearing appears grossly intact to loud voice bilaterally IX/X: Palate appears to elevate symmetrically XI: Shoulder shrug appears symmetric/ grossly intact bilaterally XII: Tongue protrudes midline without evidence of biting Motor exam: Strength appears grossly intact/symmetric in all extremities Sensory: Sensation is decreased right face Coordination: Finger to nose and heel to chowdhury were intact. No apparent evidence of dysmetria or dysdiadochokinesia Reflexes: Deferred Gait: Deferred Results & Data Vital Signs (Past 12 Hours) Vital Signs Temp Pulse Pulse Resp BP BP Pulse Ox 09/20/24 11:04 36.4 C L 70 14 140/74 96 09/20/24 11:00 79 09/20/24 09:46 81 18 159/106 H 95 09/20/24 08:05 68 18 131/78 97 09/20/24 06:36 62 16 09/20/24 06:18 64 19 09/20/24 06:00 125/55 L 09/20/24 06:00 125/55 L 09/20/24 05:57 62 16 96 09/20/24 05:30 56 L 14 94 09/20/24 05:07 56 L 09/20/24 05:03 56 L 17 95 09/20/24 05:00 116/65 09/20/24 04:54 53 L 16 95 09/20/24 04:32 55 L 15 97 09/20/24 04:17 62 18 96 09/20/24 04:06 128/72 09/20/24 04:06 128/72 09/20/24 03:53 59 L 18 95 09/20/24 03:38 60 15 94 09/20/24 03:20 58 L 15 94 09/20/24 03:05 59 L 15 95 09/20/24 03:00 169/97 H 09/20/24 03:00 169/97 H 09/20/24 03:00 169/97 H 09/20/24 02:57 58 L 15 95 09/20/24 02:44 57 L 17 95 09/20/24 02:30 114/71 09/20/24 02:30 114/71 09/20/24 02:29 59 L 16 93 09/20/24 02:03 58 L 16 94 09/20/24 02:00 127/68 09/20/24 01:42 59 L 16 96 09/20/24 01:36 63 18 97 09/20/24 01:31 135/63 09/20/24 01:31 135/63 O2 Del Method 09/20/24 11:04 Room Air 09/20/24 11:00 09/20/24 09:46 Room Air 09/20/24 08:05 Room Air 09/20/24 06:36 09/20/24 06:18 09/20/24 06:00 09/20/24 06:00 09/20/24 05:57 09/20/24 05:30 09/20/24 05:07 09/20/24 05:03 09/20/24 05:00 09/20/24 04:54 09/20/24 04:32 09/20/24 04:17 09/20/24 04:06 09/20/24 04:06 09/20/24 03:53 09/20/24 03:38 09/20/24 03:20 09/20/24 03:05 09/20/24 03:00 09/20/24 03:00 09/20/24 03:00 09/20/24 02:57 09/20/24 02:44 09/20/24 02:30 09/20/24 02:30 09/20/24 02:29 09/20/24 02:03 09/20/24 02:00 09/20/24 01:42 09/20/24 01:36 09/20/24 01:31 09/20/24 01:31 Laboratory Results Abnormal lab results 09/19/24 09/20/24 09/20/24 Range/Units 21:10 10:02 10:03 WBC 11.31 H (4.8-10.8) K/ul RBC 4.41 L 4.54 L (4.70-6.10) M/uL Hgb 13.9 L (14.0-18.0) g/dl Hct 41.2 L (42.0-52.0) % Neut # (Auto) 7.51 H 6.59 H (1.40-6.50) K/uL Runnels # (Auto) 0.91 H (0.11-0.59) K/uL BUN/Creatinine Ratio 21.5 H (10-20) Glucose 115 H (70-99(Fasting)) mg/dl Hemoglobin A1c 6.5 H (4.5-5.6) % Triglycerides 151 H (0-150) mg/dl Diagnostic Findings Head CT 09/19/24 21:47 Exam(s): CT HEAD Without Contrast EXAM: CT Head Without Intravenous Contrast CLINICAL HISTORY: Reason for exam: Right facial numbness. TECHNIQUE: Axial computed tomography images of the head/brain without intravenous contrast. CTDI is 64 mGy and DLP is 1098 mGy-cm. Automated exposure control was utilized for the study. A dose lowering technique was utilized adhering to the principles of ALARA. COMPARISON: No relevant prior studies available. FINDINGS: Brain: No intracranial hemorrhage, mass-effect, or cerebral edema. Atrophy and chronic microvascular ischemic changes. Ventricles: Unremarkable. Bones/joints: Unremarkable. No fracture. Soft tissues: Unremarkable. Sinuses: No acute sinusitis. Mastoid air cells: Unremarkable as visualized. IMPRESSION: 1. No acute intracranial abnormality. 2. Atrophy and chronic microvascular ischemic changes. Electronically signed by: Harshil Laws MD 09/19/24 23:53 PM Head CTA 09/19/24 21:47 Exam(s): CTA HEAD With Contrast IV Amt: 117 ml optiray 320 EXAM: CT Angiography Head With Intravenous Contrast CLINICAL HISTORY: Reason for exam: Right facial numbness. TECHNIQUE: Axial computed tomographic angiography images of the head with intravenous contrast. CTDI is 64 mGy and DLP is 1098 mGy-cm. Automated exposure control was utilized for the study. A dose lowering technique was utilized adhering to the principles of ALARA. MIP reconstructed images were created and reviewed. CONTRAST: Patient received 117 ml optiray 320 of IV contrast COMPARISON: No relevant prior studies available. FINDINGS: Right internal carotid artery: Intracranial segment is patent with no significant stenosis. No aneurysm. Right anterior cerebral artery: No occlusion or significant stenosis. No aneurysm. Right middle cerebral artery: No occlusion or significant stenosis. No aneurysm. Right posterior cerebral artery: No occlusion or significant stenosis. No aneurysm. Right vertebral artery: Unremarkable as visualized. Left internal carotid artery: Intracranial segment is patent with no significant stenosis. No aneurysm. Left anterior cerebral artery: No occlusion or significant stenosis. No aneurysm. Left middle cerebral artery: No occlusion or significant stenosis. No aneurysm. Left posterior cerebral artery: No occlusion or significant stenosis. No aneurysm. Left vertebral artery: Unremarkable as visualized. Basilar artery: No occlusion or significant stenosis. No aneurysm. IMPRESSION: Normal head CTA. Electronically signed by: Harshil Laws MD 09/19/24 23:46 PM Neck CTA 09/19/24 21:47 Exam(s): CTA NECK With Contrast IV Amt: 117 ml optiray 320 EXAM: CT Angiography Neck With Intravenous Contrast CLINICAL HISTORY: Reason for exam: Right facial numbness. TECHNIQUE: Routine carotid CT angiography protocol was performed with intravenous contrast. NASCET criteria using the distal ICAs for comparison were used for evaluation of stenoses. CTDI is 64 mGy and DLP is 1098 mGy-cm. Automated exposure control was utilized for the study. A dose lowering technique was utilized adhering to the principles of ALARA. MIP reconstructed images were created and reviewed. CONTRAST: Patient received 117 ml optiray 320 of IV contrast COMPARISON: None. FINDINGS: VASCULATURE: Right common carotid artery: No occlusion or significant stenosis. No dissection. Right internal carotid artery: Extracranial segment is patent with no occlusion or significant stenosis. No dissection. Right vertebral artery: No occlusion or significant stenosis. No dissection. Left common carotid artery: No occlusion or significant stenosis. No dissection. Left internal carotid artery: Extracranial segment is patent with no occlusion or significant stenosis. No dissection. Left vertebral artery: No occlusion or significant stenosis. No dissection. NECK: Bones/joints: No acute fracture. Moderate to severe canal stenosis at C3-C4. Multilevel high-grade foraminal stenosis. Soft tissues: Unremarkable. Lung apices: Clear. CAROTID STENOSIS REFERENCE USING NASCET CRITERIA: % ICA stenosis = (1 - narrowest ICA diameter/diameter of distal cervical ICA) x 100. Mild - <50% stenosis. Moderate - 50-69% stenosis. Severe - 70-94% stenosis. Near occlusion - 95-99% stenosis. Occluded - 100% stenosis. IMPRESSION: 1. No flow-limiting stenosis. 2. Moderate to severe canal stenosis at C3-4. Electronically signed by: Harshil Laws MD 09/19/24 23:56 PM Chest X-Ray 09/19/24 22:58 Exam(s): XR CXR 1 VIEW EXAM: XR Chest, 1 View CLINICAL HISTORY: Reason for exam: stroke like symptoms. TECHNIQUE: Frontal view of the chest. COMPARISON: Chest radiograph on 07/09/2016 FINDINGS: Hardware: None. Lungs/pleura: Normal. No focal consolidation. No pleural effusion or pneumothorax. Heart/mediastinum: Normal. No cardiomegaly. Soft tissues: Unremarkable. Bones: No acute fracture. Upper abdomen: Normal. IMPRESSION: No acute disease identified. Electronically signed by: Paulie Mejia M.D. 09/20/24 01:31 AM Brain MRI 09/20/24 09:12 MR brain wo/w con HISTORY: 74 years-old Male stroke like symptoms acute stroke like symptoms COMPARISON: Head CT of same day TECHNIQUE: Multiplanar multisequence MRI of the brain was obtained with and without IV contrast FINDINGS: No restricted diffusion to suggest acute or subacute infarct. Midline structures appear unremarkable. Cerebral venous sinuses and major arterial flow voids appear patent. Skull, orbits and soft tissues are unremarkable. There is no acute intracranial hemorrhage, midline shift, abnormal extra-axial collection, hydrocephalus or intra-axial mass. Mild senescent mineralization of the lentiform nuclei. Involutional changes with moderate T2/FLAIR hyperintense foci throughout the white matter. No abnormal enhancement. IMPRESSION: 1. No acute intracranial abnormality, specifically no acute or subacute infarct. 2. Mild involutional changes with moderate chronic microvascular ischemic disease. 3. No abnormal enhancement. ACT 112: Negative or not required by law. The above report was generated using voice recognition software. It may contain grammatical, syntax or spelling errors. Electronically signed by: Lowell Ghosh M.D. 09/20/2024 11:57 AM Medications Administered Home Medications Medication Instructions Recorded Confirmed Last Taken aspirin 81 mg tablet,delayed 81 mg PO DAILY 09/20/24 09/20/24 Unknown release cetirizine 10 mg tablet 10 mg PO DAILY 09/20/24 09/20/24 Unknown lisinopril 5 mg tablet 5 mg PO DAILY 09/20/24 09/20/24 Unknown metoprolol tartrate 25 mg tablet 12.5 mg PO BID 09/20/24 09/20/24 Unknown rosuvastatin 40 mg tablet 40 mg PO DAILY 09/20/24 09/20/24 Unknown Active Medications Generic Name Dose Route Start Last Admin Trade Name Ion PRN Reason Stop Dose Admin Aspirin 81 mg 09/20/24 09:12 09/20/24 10:51 Aspirin 81 Mg Ectab PO 10/20/24 09:11 81 mg DAILY UNIQUE Administration Cetirizine HCl 10 mg 09/20/24 09:12 09/20/24 12:46 Cetirizine Hcl 10 Mg Tablet PO 10/20/24 09:11 10 mg DAILY UNIQUE Administration Sodium Chloride 1,000 mls @ 80 mls/hr 09/20/24 09:12 09/20/24 12:44 Nss IV 09/20/24 21:41 80 mls/hr .[id number] UNIQUE Infusion Metoprolol Tartrate 12.5 mg 09/20/24 09:12 09/20/24 10:51 Metoprolol Tartrate 25 Mg Tab PO 10/20/24 09:11 12.5 mg BID UNIQUE Administration Rosuvastatin Calcium 40 mg 09/20/24 09:12 09/20/24 10:51 Rosuvastatin Calcium 20 Mg Tab PO 10/20/24 09:11 40 mg DAILY UNIQUE Administration
--- NOTE | 2024-09-20 14:39 | Pharmacy Report ---
- Date of Service September 20, 2024 - Pharmacy CVA/TIA Medication Review Medications to Prevent Stroke handout has been added to the patients discharge packet. Antiplatelet(s) * Aspirin EC 81mg PO daily * Per today's note, Neurology consult recommends DAPT x 3 weeks followed by aspirin monotherapy Cholesterol * High intensity statin: rosuvastatin 40 mg daily DVT Prophylaxis * SCD thigh currently ordered Therapeutic Anticoagulation * No history of Afib/Aflutter noted Type 2 Diabetes * Patient does not have prior dx of T2DM, but did have prior dx of "pre- diabetes". A1c this admission is consistent w/ dx of diabetes per our lab cutoffs. * Consideration should be given to use of a diabetes medication with proven CVD benefit if dx of T2DM made. "Medications to prevent stroke" handout has already been added to the patient's discharge packet, which instructs the patient to follow up with their outpatient provider to evaluate which diabetes medication with proven CVD benefit is best for them
[2024-09-20] MEDS: OPTIRAY 320 100ml IV ONE (15:26)
--- NOTE | 2024-09-20 16:05 | CT Scan Report ---
CT soft tissue neck w con CLINICAL HISTORY: right parotid mass? Technique: Axial CT images of the soft tissues of the neck were obtained following intravenous admini stration of 100 cc of Omnipaque 300. Automated dose lowering techniques and/or adjustment according t o patient size were utilized for this exam. CT DOSE: 736.44 mGy.cm Comparison: Comparison is made to CT neck 09/19/2024 Findings: The oropharynx, hypopharynx, larynx, and trachea are patent. No enlarged lymph nodes are seen. The pa rotid glands, submandibular glands, and thyroid gland are unremarkable. Imaged portions of the brain parenchyma are unremarkable. The paranasal sinuses and mastoid air cell s are normal in appearance. Impression: No acute abnormality and in particular no evidence of right parotid mass or lymphadenopathy. ACT 112: Negative or not required by law. Electronically signed by: Bin Samson M.D. 09/20/2024 4:04 PM
[2024-09-20] MEDS ORDERED: STROKE PATIENT DISCHARGE STA (16:14)
--- NOTE | 2024-09-20 16:18 | Discharge Summary ---
Discharge Summary Date of Service September 20, 2024 Principal Dx & Hospital Course #1 = Principal Diagnosis (1) Stroke-like symptom: (2) Prediabetes: (3) Hypertension, essential: Notes For Next Care Provider Medication Changes From Visit Valacyclovir 1 g twice daily for 7 days Prednisone 60 mg daily for 7 days Artificial tears 1 drop in right eye every 6 hours as needed Admission HPI Per Admitting Provider Patient is a 74-year-old gentleman with history of coronary artery disease status post PCI, hypertension, PVC, dyslipidemia, prediabetes who was admitted with what transpired as strokelike symptoms. Patient stated that for almost a week he was having problem tasting foods but then since 3 days prior to this visit, he started noticing numbness of the right side of his face, he also felt that he was unable to feel inside his right cheek and also, difficulty closing the right eye. 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 Because of concern about his right parotid discomfort or feeling of bump, patient had CT of the neck soft tissue which was unremarkable, case was discussed at the end of the workup with neurology and we agreed on the plan of treating Peng's palsy with Valtrex and steroid. patient will be discharged home with follow-up as outpatient. Discharge Exam VITALS: Reviewed. WEIGHT/BMI reviewed. GEN: Healthy appearing, well-developed, NAD. CV: RRR, no m/r/g. LUNGS: CTAB, no w/r/c. NEURO: No motor deficit, cranial nerves II to XII intact, except for decreased sensation on the right side of his face. Updated Medication List Medication Instructions Recorded Confirmed Type aspirin 81 mg tablet,delayed 81 mg PO DAILY 09/20/24 09/20/24 History release carboxymethylcellulose sodium 1 % 1 drp ophthalmic (eye) Q6H #15 mL 09/20/24 Rx eye drops (Artificial Tears (carboxymethylcellulose)) cetirizine 10 mg tablet 10 mg PO DAILY 09/20/24 09/20/24 History lisinopril 5 mg tablet 5 mg PO DAILY 09/20/24 09/20/24 History metoprolol tartrate 25 mg tablet 12.5 mg PO BID 09/20/24 09/20/24 History prednisone 20 mg tablet 60 mg (3 x 20 mg) PO DAILY 7 days 09/20/24 Rx #21 tabs rosuvastatin 40 mg tablet 40 mg PO DAILY 09/20/24 09/20/24 History valacyclovir 1 gram tablet 1,000 mg PO BID 7 days #14 tabs 09/20/24 Rx Hospital Stay Data Consultations 09/20/24 00:43 ED Decision to Admit Stat 09/20/24 09:12 Consult Neurology Routine Diagnostic Imagining Performed 09/19/24 21:47 CT angio head w con Stat CT angio neck with con Stat CT head/brain wo con Stat 09/20/24 09:12 MR brain wo/w con Urgent 09/20/24 13:55 CT soft tissue neck w con Urgent Pending Results Patient Have Any Pending Studies at Discharge: No Discharge Instructions Given to Patient (Per Discharging Provider) Continue taking your medications as prescribed Total Time Total Time Spent Total Time Spent (In Minutes): More than 35-minute
== END 2024-09-20 17:17 | disposition home or self-care (01) | DRG 74 ==
LOC: ED 20:54 → EDINP 09-20 05:56 → 2E 09-20 09:12